=== PATIENT | male | born 1975 | race African-American/Black ===

== ENCOUNTER 2019-04-18 18:39 | Outpatient (REF) | payer OTHER, SELFPAY ==
[2019-04-18 19:00] LABS: ALT 36 U/L (16-63); AST 22 U/L (15-37); Albumin 3.9 g/dL (3.4-5.0); Alkaline Phosphatase 71 U/L (46-116); BUN 8 mg/dL (7-18); Bilirubin, Total 0.4 mg/dL (0.2-1.0); CREATININE 0.86 mg/dL (0.70-1.30); Calcium 9.2 mg/dL (8.5-10.1); Calculated LDL 73 mg/dL; Chloride 104 mmol/L (98-107); Cholesterol 124 mg/dL (50-200); Glucose 118 mg/dL (70-100); HDL Cholesterol 43 mg/dL (40-60); Potassium 4.8 mmol/L (3.5-5.1); Sodium 141 mmol/L (136-145); Total Protein 7.9 g/dL (6.4-8.2); Triglyceride 43 mg/dL (30-150)
== END 2019-04-18 18:59 ==
LOC: LBN 18:39
PROVIDERS: PCP Family Medicine; Visit Provider Family Medicine
DX: R73.02 Impaired glucose tolerance (oral) (principal)
CPT/HCPCS: 80053; 80061

== ENCOUNTER 2019-11-28 13:54 | Outpatient (CLI) | payer OTHER, SELFPAY ==
--- NOTE | 2019-11-28 10:30 | DI.US_ITS ---
EXAM: US ABDOMEN CLINICAL HISTORY: R sided abdominal pain, fever, nausea,R10.9 TECHNIQUE: Ultrasound performed using standard protocol. COMPARISON: No exams were available for comparison FINDINGS: Visualized liver parenchyma is somewhat heterogeneous and echogenic. Findings may represent hepatic steatosis. No focal lesion identified. Gallbladder is contracted with no evidence of cholelithiasis. No biliary dilatation. Pancreas is un remarkable as visualized but the pancreatic tail is not seen. Spleen appears normal within incidentals splenule. The kidneys are unremarkable in appearance with no evidence of hydronephrosis or nephrolithiasis. The abdominal aorta and IVC are of normal diameter. Scanning of the right lower quadrant does not show the appendix. IMPRESSION: Negative abdominal ultrasound except for presumed hepatic steatosis. DATA REPOSITORY:
== END 2019-11-28 14:14 ==
PROVIDERS: PCP Family Medicine; Visit Provider Family Medicine
DX: R10.11 Right upper quadrant pain (principal); R11.0 Nausea; R50.9 Fever, unspecified; K76.0 Fatty (change of) liver, not elsewhere classified
CPT/HCPCS: 76700

== ENCOUNTER 2019-12-05 02:49 | Outpatient (CLI) | payer OTHER, SELFPAY ==
[2019-12-05 12:24] LABS: Abs Immature Grans 0.13 k/cumm (0.0-0.09); Absolute Basophil Count 0.02 k/cumm (0.0-0.2); Absolute Eosinophil Count 0.11 k/cumm (0.0-0.7); Absolute Lymphocyte Count 2.57 k/cumm (1.2-3.4); Absolute Monocyte Count 0.59 k/cumm (0.11-0.7); Absolute Neutrophil Count 2.86 k/cumm (1.2-6.7); Basophils % 0.3; Eosinophils % 1.8; HCT 44.1 % (40.0-50.0); HGB 14.4 g/dL (13.5-17.5); Immature Grans % 2.1 %; Lymphocytes % 40.9; Mean Corp. HGB Concentration 32.7 g/dL (32.0-36.0); Mean Corpuscular Hemoglobin 27.8 pg (27.0-33.0); Mean Corpuscular Volume 85.1 fL (80-95); Mean Platelet Volume 9.7 fL (8.0-11.0); Monocytes % 9.4; Neutrophils % 45.5; Platelet Count 412 x1000/uL (130-400); RBC 5.18 m/cumm (4.50-6.00); RBC Distribution Width 13.8 % (11.8-14.1); White Blood Cell Count 6.28 k/cumm (4.4-10.8)
[2019-12-05 13:05] LABS: Lipase 132 U/L (73-393)
[2019-12-05 13:13] LABS: ALT 49 U/L (16-63); AST 20 U/L (15-37); Albumin 3.5 g/dL (3.4-5.0); Alkaline Phosphatase 75 U/L (46-116); Anion Gap 7.8 mmol/L (3-11); BUN 17 mg/dL (7-18); Bilirubin, Total 0.2 mg/dL (0.2-1.0); CO2 28.2 mmol/L (21.0-32.0); Calcium 9.2 mg/dL (8.5-10.1); Chloride 101 mmol/L (98-107); Glucose 141 mg/dL (74-106); Potassium 4.4 mmol/L (3.5-5.1); Sodium 137 mmol/L (136-145); Total Protein 7.3 g/dL (6.4-8.2)
[2019-12-05 13:25] LABS: Bilirubin Negative (Negative); Blood Negative (Negative); Clarity Clear (Clear); Glucose Negative (Negative); Ketones Negative (Negative); Leukocyte Esterase Negative (Negative); Nitrite Negative (Negative); Specific Gravity >= 1.030 (1.005-1.025); Urobilinogen 0.2 EU/dL (Up TO 0.2); pH 5.5 (5-8)
== END 2019-12-05 03:09 ==
PROVIDERS: PCP Family Medicine; Visit Provider Family Medicine
DX: R10.9 Unspecified abdominal pain (principal)
CPT/HCPCS: 36415; 80053; 83690; 81003; 85025

== ENCOUNTER 2020-03-04 10:04 | Outpatient (CLI) | payer OTHER, SELFPAY ==
--- NOTE | 2020-03-04 10:22 | DI.RAD_ITS ---
EXAM: XR KNEE RT 3V AP,LAT,DANIS CLINICAL HISTORY: eval R knee pain, medial TECHNIQUE: COMPARISON: No exams were available for comparison FINDINGS: Three views were obtained. There may be mild narrowing of the medial tibiofemoral cartilaginous join t space. Mild marginal osteophyte formation noted at the medial tibiofemoral joint and patellofemora l joint. There may be a small knee joint effusion. No other significant abnormality seen. IMPRESSION: Mild degenerative changes as described above.
== END 2020-03-04 10:24 ==
PROVIDERS: PCP Family Medicine; Referring Provider Family Medicine; Visit Provider Student in an Organized Health Care Education/Training Program
DX: M17.11 Unilateral primary osteoarthritis, right knee (principal); M25.761 Osteophyte, right knee
CPT/HCPCS: 73562

== ENCOUNTER 2020-03-11 15:26 | Outpatient (REF) | payer OTHER, SELFPAY | END 2020-03-11 15:46 | LOC: LBN 15:26 | PROVIDERS: PCP Family Medicine; Visit Provider Family Medicine | DX: B89 Unspecified parasitic disease | CPT/HCPCS: 87177 ==

== ENCOUNTER 2020-04-16 23:35 | Outpatient (REF) | payer OTHER, SELFPAY ==
[2020-04-16 22:20] LABS: ALT 43 U/L (16-63); AST 26 U/L (15-37); Albumin 3.9 g/dL (3.4-5.0); Alkaline Phosphatase 76 U/L (46-116); Anion Gap 7.6 mmol/L (3-11); BUN 13 mg/dL (7-18); Bilirubin, Total 0.3 mg/dL (0.2-1.0); CO2 30.4 mmol/L (21.0-32.0); CREATININE 0.84 mg/dL (0.70-1.30); Calcium 9.6 mg/dL (8.5-10.1); Calculated LDL 94 mg/dL (<100); Chloride 103 mmol/L (98-107); Cholesterol 156 mg/dL (<200); Glucose 118 mg/dL (74-106); HDL Cholesterol 49 mg/dL (40-60); Potassium 5.1 mmol/L (3.5-5.1); Sodium 141 mmol/L (136-145); Total Protein 7.6 g/dL (6.4-8.2); Triglyceride 69 mg/dL (<150)
== END 2020-04-16 23:55 ==
LOC: LBN 23:35
PROVIDERS: PCP Family Medicine; Visit Provider Family Medicine
DX: E11.9 Type 2 diabetes mellitus without complications (principal); K76.0 Fatty (change of) liver, not elsewhere classified
CPT/HCPCS: 80053; 80061

== ENCOUNTER 2020-04-23 04:18 | Outpatient (CLI) | payer OTHER, SELFPAY ==
[2020-04-23] MEDS: Omnipaque 350 MG/ML 50 ML BTL PO (12:34)
[2020-04-23] MEDS: Breeza Beverage 473 ML BTL PO (14:40)
[2020-04-23] MEDS: Normal Saline - Diluent 50 ML VIAL IV (14:41)
[2020-04-23] MEDS: Omnipaque 350 MG/ML 100 ML BTL IJ (14:41)
--- NOTE | 2020-04-23 14:44 | DI.CT_ITS ---
EXAM: CT ABDOMEN PELVIS W CLINICAL HISTORY: 44 yo male with RUQ pain, liver vs rib frx,FATTY LIVER,K76.0 TECHNIQUE: Imaging Protocol: Axial computed tomography images with coronal and sagittal reformatted images were created and reviewed CONTRAST MATERIAL: Intravenous: Omnipaque 350 Contrast volume:100 mL Oral: Yes COMPARISON: No exams were available for comparison FINDINGS: ABDOMEN: Lung Bases: Normal where visualized. Liver: Fatty infiltration. No measurable mass. Portal, Superior Mesenteric, and Splenic Veins: Unremarkable. Gallbladder and Biliary Tract: No radiodense calculus or dilation. Pancreas: Normal density, no abnormal calcifications or inflammatory process. Spleen: Normal. Adrenals: No masses seen. Kidneys: Normal size, contour and axis. No radiodense stones or obstructive uropathy. No masses seen. Abdominal Aorta: Abdominal portion non-dilated. Bowel: No obstruction or bowel wall thickening. Appendix is unremarkable. Peritoneal Cavity: No ascites, collection or mesenteric inflammatory response. Lymph Nodes: Within normal limits. Bones: L5 spondylolysis but no spondylolisthesis. Mild degenerative changes. Soft Tissues: Unremarkable. PELVIS: Bladder: Symmetric distention, no gross wall thickening. Reproductive Organs: Unremarkable as visualized. Lymph Nodes: Within normal limits. Bones: Please see above. IMPRESSION: 1. No evidence of a fracture. No evidence of a rib fracture. 2. Fatty infiltration of the liver. No evidence of a hepatic mass. RADIATION DOSE DELIVERED: 1,399.28mGy.cm Total DLP DATA REPOSITORY: All CT scans at this facility are submitted to the National Radiology Data Registry (NRDR) Dose Index Registry (DIR) with the [employer] (ACR). RADIATION OPTIMIZATION: All CT scans at this facility use at least one of these dose optimization te chniques: automated exposure control; mA and/or kV adjustment per patient size (includes targeted exa ms where dose is matched to clinical indication); or iterative reconstruction.
== END 2020-04-23 04:38 ==
PROVIDERS: PCP Family Medicine; Visit Provider Family Medicine
DX: K76.0 Fatty (change of) liver, not elsewhere classified (principal); R10.11 Right upper quadrant pain
CPT/HCPCS: 74177; J3490; Q9967

== ENCOUNTER 2021-03-21 16:08 | Outpatient (REF) | payer MEDICAID, SELFPAY ==
[2021-03-21 21:37] LABS: Abs Immature Grans 0.02 10^3/uL (0.0-0.06); Absolute Basophil Count 0.03 10^3/uL (0.0-0.2); Absolute Eosinophil Count 0.06 10^3/uL (0.0-0.7); Absolute Lymphocyte Count 2.01 10^3/uL (1.2-3.4); Absolute Monocyte Count 0.45 10^3/uL (0.1-0.8); Absolute Neutrophil Count 1.52 10^3/uL (1.2-6.7); Basophils % 0.7; Eosinophils % 1.5; HCT 45.3 % (40.0-50.0); HGB 14.4 g/dL (13.5-17.5); Immature Grans % 0.5; Lymphocytes % 49.1; MCH 27.2 pg (27.0-33.0); MCHC 31.8 % (32.0-36.0); MCV 85.5 fL (80-95); MPV 12.4 fL (8.0-11.0); Neutrophils % 37.2; Nucleated RBC 0 %; Platelet Count 309 10^3/uL (130-400); RDW 13.9 % (11.8-14.1); RDW-SD 43.5 fL; WBC 4.09 10^3/uL (4.4-10.8)
[2021-03-21 21:52] LABS: ALT 34 U/L (16-63); AST 14 U/L (15-37); Albumin 3.9 g/dL (3.4-5.0); Alkaline Phosphatase 71 U/L (46-116); Anion Gap 8.2 mmol/L (3-11); BUN 13 mg/dL (7-18); Bilirubin, Total 0.3 mg/dL (0.2-1.0); CO2 26.8 mmol/L (21.0-32.0); Calcium 9.2 mg/dL (8.5-10.1); Chloride 103 mmol/L (98-107); Glucose 187 mg/dL (74-106); Sodium 138 mmol/L (136-145); Total Protein 7.3 g/dL (6.4-8.2)
[2021-03-23 16:20] LABS: COVID-19 RT-PCR UVMMC Result Negative (Negative)
== END 2021-03-21 16:09 | disposition home or self-care (01) ==
LOC: LBN 16:08
PROVIDERS: PCP Family Medicine; Visit Provider Physician Assistant Medical
DX: E11.9 Type 2 diabetes mellitus without complications (principal); Z20.822 Contact with and (suspected) exposure to COVID-19
CPT/HCPCS: 80053; U0003; 85025

== ENCOUNTER 2021-03-24 01:38 | Outpatient (CLI) | payer MEDICAID, SELFPAY ==
--- NOTE | 2021-03-24 | DI.US_ITS ---
Exam(s) US ABDOMEN RENAL EXAM: US ABDOMEN RENAL CLINICAL HISTORY: RT FLANK PAIN, R10.9, CONCERN FOR KIDNEY/GALLBLADDER STONES TECHNIQUE: Ultrasound of complete upper abdomen performed using standard protocol. COMPARISON: US US ABDOMEN from 11/28/2019 FINDINGS: There is no ascites evident. LIVER: There are no hepatic lesions evident nor obvious dilatation of intrahepatic ducts. Liver does appear somewhat hyperechoic indicating an element of steatosis. GALLBLADDER/BILIARY: There are no gallstones. No gallbladder wall edema nor pericholecystic fluid. The common hepatic duct isnot dilated, measuring 2.3mm at the level of dianne hepatis. PANCREAS: There is no evidence of pancreatic mass nor dilatation of the pancreatic duct. SPLEEN: The spleen is not enlarged and there are no intrasplenic lesions evident. KIDNEYS:Kidneys exhibit normal size with no evidence of solid mass, calculus, nor hydronephrosis. No cortical cysts evident. ABDOMINAL AORTA: There is no evidence of abdominal aortic aneurysm. IVC: Normal diameter where visualized. URINARY BLADDER: Contains only 61 cc volume. However, both ureterovesical jets were identified. No obvious mass in the urinary bladder, realizing limitations due to the small amount of volume therein. IMPRESSION: 1. No evidence of cholelithiasis nor dilatation of the biliary tree. 2. Hepatic steatosis. Correlation appropriate hepatic blood work recommended. 3. Bladder not adequately prepped, as described above. DATA REPOSITORY:
== END 2021-03-24 01:58 ==
PROVIDERS: PCP Family Medicine; Visit Provider Physician Assistant Medical
DX: R10.9 Unspecified abdominal pain (principal); K76.0 Fatty (change of) liver, not elsewhere classified
CPT/HCPCS: 76770; 76700

== ENCOUNTER 2021-09-13 00:28 | Outpatient (CLI) | payer MEDICAID, SELFPAY ==
--- NOTE | 2021-09-13 | ETT_ITS ---
APPROVED REPORT Exam: Exercise Treadmill Patient Location: Out-Patient Room/Bed: Stress Nurse: Kaia Leach RN Ordering Provider:CAMERON LLOYD, Contact Number: [phone] BMI: 37.30 Baseline Rhythm: Sinus Rhythm Indications: Intermittent Chest Pain Medical History Medical History: DM, Asthma, ADONAY, Anxiety, Depression Cardiac Medications: Omeprazole, Montelukast, Metformin, Albuterol sulfate. Allergies: No known drug allergies Cardiac Risk Factors: DM, FHX of CAD, Asthma Previous Cardiac Procedures: None Pretest Chest Pain Characteristics: No chest pain Exercise History: Sedentary Physical Disabilities: None Lung Sounds: Clear to auscultation Heart Sounds: Regular Stress Test Details Test: Exercise stress testing was performed using a Shamar protocol. Rest Stress HR Resting HR Supine: 67 bpm Max Heart Rate (APMHR): 173 bpm Resting HR Standin bpm Target HR (85% APMHR): 147 bpm Max HR Achieved: 158 bpm % of APMHR: 91 Recovery HR: 97 bpm HR response to stress: Normal HR response to stress BP Resting BP Supine: 130/88 mmHg Resting BP Standin/80 mmHg Max BP: 160/78 mmHg Recovery BP: 130/76 mmHg BP response to stress: Normal blood pressure response to stress. ECG Resting ECG: Sinus Rhythm Ectopy: none Comment: diffuse mild ST segment elevations noted Stress ECG: Sinus Tachycardia ST Change: No significant ST segment changes noted Arrhythmia: rare PVC Recovery ECG: Sinus Rhythm Recovery ST Change: No significant ST segment changes noted Recovery Arrhythmia: None Clinical Reason for Termination: Dyspnea Stress Symptoms: General Fatigue, Dyspnea Exercise duration: 08 min15 sec Highest Stage Reached: Stage 3: 3.4 mph at 14% grade. Exercise capacity: 10.16 METs Rate Pressure Product: 28015 Stress ECG Conclusion 1. Resting electrocardiogram was within normal limits 2. Patient exercised on the Shamar protocol completed a workload of 10.16 METS, stopping due to fatigu e 3. Normal heart rate and blood pressure response to exercise. Patient achieved 91% of predicted hear t rate for age 4. There was no electrocardiographic evidence of myocardial ischemia 5. There were no significant dysrhythmias Stress Test Summary STAGE Time (mins) Speed (mph) Grade (%) HR BP SYMPTOMS METS Supine 67 130/88 Standing 62 132/80 1 3 1.7 10 102 140/80 SpO2 99% 4.6 2 6 2.5 12 121 142/80 Sp02 99% 7 1 min recovery 126 150/78 3 min recovery 94 160/78 6 min recovery 97 130/76
== END 2021-09-13 00:48 ==
PROVIDERS: PCP Nurse Practitioner Family; Visit Provider Nurse Practitioner Family
DX: R07.9 Chest pain, unspecified (principal); E11.9 Type 2 diabetes mellitus without complications; Z82.49 Family history of ischemic heart disease and other diseases of the circulatory system; J45.909 Unspecified asthma, uncomplicated
CPT/HCPCS: 93017

== ENCOUNTER 2021-09-13 00:41 | Outpatient (CLI) | payer MEDICAID, SELFPAY ==
--- NOTE | 2021-09-13 07:30 | DI.US_ITS ---
APPROVED REPORT EXAM: Comprehensive 2D, Doppler, and color-flow Echocardiogram Patient Location: Out-Patient Daily [employer] Printer: Merary Vaughan RDCS (AE) Indications: Intermittent chest pain Other Information Study Quality: Good Conclusion Normal left ventricular wall thickness and chamber size. Estimated ejection fraction is 60 to 65%. Wall motion is normal Normal right ventricular size and systolic function Both atria are normal in size There is no structural or hemodynamically significant valvular disease Wall motion Left Ventricle The left ventricle is normal size. The left ventricular systolic function is normal. The left ventric ular ejection fraction is within the normal range. There is normal left ventricular wall thickness. T here is normal LV segmental wall motion. There is no ventricular septal defect visualized. LVEF is 60 -65%. Right Ventricle The right ventricle is normal size. The right ventricular systolic function is normal. The RVSP is 19 .8 mmHg. Atria The left atrium size is normal. The right atrium size is normal. The interatrial septum is intact wit h no evidence for an atrial septal defect. Aortic Valve The aortic valve is normal in structure. Aortic valve is trileaflet. There is no aortic valvular sten osis. No aortic regurgitation is present. Mitral Valve The mitral valve is normal in structure. No evidence of mitral valve stenosis. Trace to mild mitral r egurgitation. Tricuspid Valve The tricuspid valve is normal in structure. There is no tricuspid valve stenosis. Trace tricuspid reg urgitation. Pulmonic Valve The pulmonary valve is normal in structure. There is no pulmonic valvular stenosis. Trace pulmonic re gurgitation. Great Vessels The aortic root is normal in size. The ascending aorta is normal in size. Aortic arch is normal in ca liber. IVC is normal in size and collapses >50% with inspiration. Pericardium There is no pericardial effusion. 2D Dimensions IVSD d PLAX 0.98 cm M: 0.6-1.2 LV Vol A2C d MOD 96.2 mL LVPW d PLAX 0.95 cm M: 0.6 - 1.2 LV Vol A4C d MOD 106.4 mL LVID d PLAX 4.90 cm M: 4.2 - 5.8 LA vol/ BSA A2C s A-L 16.5 mL/m2 LVDs 3.15 cm M: 2.5 - 4.0 LA vol/ BSA A4C s A-L 12.5 mL/m2 Ao Root d 2.52 cm M: 3.1 - 3.7 LA Vol/ BSA Biplane s A-L 14.4 mL/m2 RA Area A4C 11.81 cm2 LA Area A4C s MOD 13.27 cm2 RA Vol/ BSA A4C s A-L 10.9 mL/m2 LA Area A2C s MOD 15.34 cm2 Ao Asc Diam d 2.93 cm M: 2.6 - 3.4 LV EF A4C MOD 59.7 % LV EF Teichholz 64.2 % LV EF A2C MOD 65.6 % LVEF (Caraballo's) 64.13 % M: 52 - 72 LV EF Biplane MOD 64.1 % LV Volume 76.34 mL M: 62 - 150 SV 68.54 mL LV Volume Index 32.76 mL/m2 M: 34 - 74 SV Index 29.37 mL/m2 LV Vol Biplane MOD 106.9 mL FS 35.10 % M-Mode TAPSE 2.19 cm (M/F) >1.7 LV Diastology MV E' medial 0.094 (>0.07 m/s) E/A Ratio 1.8 LV E/e MED 10.65 (<14) MV E Vmax 1.00 (0.4-1.3 m/s) MV E' lateral 0.129 (>0.1 m/s) MV A Vmax 0.55 (0.4-1.3 m/s) LV E/e LAT 7.70 (<14) MV E/A Ratio 1.80 MV E/E' medial 10.65 MV E/E' lateral 7.75 Aortic Valve LVOT Area 2.83 cm2 AoV Area Vmax 2.39 cm2 LVOT Vmax 1.31 m/s AoV Area/ BSA (Vmax) 1.02 cm2/m2 LVOT Mean Singh. 0.77 m/s PAIGE Mean Singh. 2.25 cm2 LVOT Peak Grad 6.9 mmHg PAIGE Mean Singh. Index 0.96 cm2/m2 LVOT Mean Grad 2.9 mmHg LVOT VTI 0.270 m LVOT Diam s 1.85 cm AoV Vmax 1.56 m/s Velocity Ratio 0.83 AoV Mean Singh. 0.97 m/s AoV Peak Grad 9.7 mmHg LVOT SV 76.48 mL AoV Mean Grad 4.4 mmHg AoV VTI 0.275 m AoV Area VTI 2.78 cm2 AoV Area/ BSA (VTI) 1.19 cm/m2 Mitral Valve MV DT 197 (160-240 msec) MV PHT 57 msec MV Area PHT 3.85 cm2 MV VTI 0.342 m MV Area VTI 2.24 (4.0-6.0 cm2) Pulmonary Valve PV Vmax 1.27 (0.5-1.5 m/s) RVOT Peak Gr. 2.21 mmHg PV Peak Grad 6.4 mmHg RVOT Mean Gr. 1.20 mmHg PV Mean Grad 3.2 mmHg RVOT VTI 0.190 m PV VTI 0.296 m RVOT Vmax 0.74 m/s Tricuspid Valve TR Peak Grad 16.7 mmHg TR Vmax 2.05 m/s RA Pressure 3.00 mmHg RVSP (TR) 19.8 mmHg
== END 2021-09-13 01:01 ==
PROVIDERS: PCP Nurse Practitioner Family; Visit Provider Nurse Practitioner Family
DX: R07.89 Other chest pain (principal)
CPT/HCPCS: 93306

== ENCOUNTER 2022-03-14 13:21 | Outpatient (REF) | payer MEDICAID, SELFPAY ==
[2022-03-14 16:23] LABS: HCT 45.3 % (40.0-50.0); HGB 14.5 g/dL (13.5-17.5); MCH 27.4 pg (27.0-33.0); MCV 86 fL (80-95); MPV 11.4 fL (8.0-11.0); Platelet Count 331 10^3/uL (130-400); RDW 14.4 % (11.8-14.1); RDW-SD 44.7 fL; WBC 4.65 10^3/uL (4.4-10.8)
[2022-03-14 16:43] LABS: ALT 27 U/L (16-63); AST 19 U/L (15-37); Albumin 4.1 g/dL (3.4-5.0); Alkaline Phosphatase 60 U/L (46-116); Anion Gap 9.9 mmol/L (3-11); BUN 17 mg/dL (7-18); Bilirubin, Total 0.4 mg/dL (0.2-1.0); CO2 28.1 mmol/L (21.0-32.0); CREATININE 0.9 mg/dL (0.70-1.30); Calcium 9.5 mg/dL (8.5-10.1); Calculated LDL 90 mg/dL (<100); Chloride 102 mmol/L (98-107); Cholesterol 151 mg/dL (<200); Glucose 97 mg/dL (74-106); HDL Cholesterol 47 mg/dL (40-60); Potassium 4.5 mmol/L (3.5-5.1); Sodium 140 mmol/L (136-145); Total Protein 7.8 g/dL (6.4-8.2); Triglyceride 70 mg/dL (<150)
[2022-03-15 11:27] LABS: HIV-1/2 Ag & Ab Screen Negative (Negative)
[2022-03-15 11:31] LABS: Hepatitis C Ab w Rflx HCV PCR Negative (Negative)
== END 2022-03-14 13:22 | disposition home or self-care (01) ==
LOC: LBN 13:21
PROVIDERS: PCP Nurse Practitioner Family; Visit Provider Nurse Practitioner Family
DX: E11.9 Type 2 diabetes mellitus without complications (principal); K76.0 Fatty (change of) liver, not elsewhere classified; Z13.220 Encounter for screening for lipoid disorders; Z11.59 Encounter for screening for other viral diseases; Z11.4 Encounter for screening for human immunodeficiency virus [HIV]
CPT/HCPCS: 80053; 80061; 85027; 86803; 87389

== ENCOUNTER 2022-05-09 16:16 | Outpatient (REF) | payer MEDICAID, SELFPAY ==
--- NOTE | 2022-05-09 15:50 | SKI_PTH ---
PATIENT: Tony Estes LOC: [facility] U#:[id number] AGE/SX: 46/M ROOM: RE05/09/[address]: Eliecer Padgett DNP : 1975 BED: DIS: 05/09/2022 SPEC #: [id number] RECD: 05/10/22 12:14 STATUS: ZOE REQ #: [id number] SUAD: 05/09/22 15:[address]: Eliecer Sepulveda DEPT: Surgical Specimen RECD BY: Mari Dutta ENTERED: 05/10/22 12:15 SP TYPE: SKI OT DR: Yara Noriega Tissues: 1 - SKIN BIOPSY(SHAVE/PUNCH) 2 - SKIN BIOPSY(SHAVE/PUNCH) Procedures: SKIN LEVEL 4 Comments: [id number]
== END 2022-05-09 16:17 | disposition home or self-care (01) ==
LOC: LBN 16:16
PROVIDERS: PCP Nurse Practitioner Family; Visit Provider Nurse Practitioner Family
DX: L81.8 Other specified disorders of pigmentation (principal); L98.6 Other infiltrative disorders of the skin and subcutaneous tissue
CPT/HCPCS: 88305

== ENCOUNTER → 2022-06-20 15:11 | Outpatient (CLI) | payer MEDICAID, SELFPAY ==
--- NOTE | 2022-06-20 | DI.RAD_ITS ---
Exam(s) XR CHEST 2V PA LATERAL EXAM: XR CHEST 2V PA LATERAL CLINICAL HISTORY: DYSPNEA R06.00 TECHNIQUE: 2D digital imaging was performed of the chest. Two images were obtained. PA and lateral views were obtained. COMPARISON: No exams were available for comparison FINDINGS: MEDIASTINUM: Normal. HEART: Normal. PULMONARY VASCULATURE: Normal. LUNGS: Clear. PLEURAL SPACE: No pleural effusion or pneumothorax. BONE:Within normal limits for the patient's age. OTHER FINDINGS:Normal. IMPRESSION: No acute pulmonary findings. DATA REPOSITORY: RADIATION DOSE DELIVERED:
--- NOTE | 2022-06-20 17:25 | DI.VRAD_ITS ---
PROCEDURE INFORMATION: Exam: XR Chest Exam date and time: 06/20/2022 5:06 PM Age: 46 years old Clinical indication: Dyspnea TECHNIQUE: Imaging protocol: Radiologic exam of the chest. Views: 2 views. COMPARISON: CT ABDOMEN PELVIS W 04/23/2020 2:43 PM FINDINGS: Lungs: Low lung volumes. No consolidation. Pleural spaces: Unremarkable. No pleural effusion. No pneumothorax. Heart/Mediastinum: Unremarkable. No cardiomegaly. Bones/joints: Unremarkable. IMPRESSION: No acute findings. Dictated and Authenticated by: Eliecer Ballard MD. Ordering:TEA Gonzáles MD
--- OUTSIDE RECORDS SUMMARY | 2022-06-27 15:13 | XMS_ITS | Encounter Summary ---
:1975 Author Organization [facility] Address [address] [place] [address] Care Team Providers Name Role Phone Yara Noriega Primary Care Provider Encounter Details Date Type Department Care Team Description 06/21/2022 Lab Requisition [facility] Outr Resulting Lab, Pathology & Laboratory Provider [facility] [address] [place] [address] Social History Tobacco Use Types Packs/Day Years Used Date Smoking Tobacco: Never Assessed Sex Assigned at Date Recorded Not on file documented as of this encounter Plan of Treatment Not on filedocumented as of this encounter Procedures Procedure Name Priority Date/Time Associated Diagnosis Comme nts OVA/PARASITE EXAM Routine 06/20/2022 16:00 Result s for this EST procedure are i n the results section. documented in this encounter Results OVA/PARASITE EXAM (06/20/2022 16:00 EST) [facility] Method Time Signature Parasite No ova and 06/23/2022 [facility] parasites 10:30 EST CENTER seen. LABORATORY SERVICES Specimen Anatomical Collection Method Collection Time Receive d Time (Source) Location / / Volume Laterality Feces SPECIMEN FROM 06/20/2022 16:00 06/21/2022 [facility] / Unknown EST 18:00 EST Narrative [facility] - 06/23/2022 10:30 EST (If Cryptosporidium, Cyclospora, or Micr osporidium are suspected, specific tests must be requested.) Single negative specimen does not rule out the possibility of a parasitic infection. Provider Outr Resulting Lab MICROBIOLOGY - GENERAL ORD ERABLES Performing Organization Address City/State/ZIP Code Phon e Number [facility] [address] [place] [address] SERVICES documented in this encounter Visit Diagnoses Not on filedocumented in this encounter Care Teams Double End Tenon Operator Relationship Specialty Start Date End Date Yara Noriega FNP PCP - General 03/30/22 [address] [place] [address] documented as of this encounter
--- OUTSIDE RECORDS SUMMARY | 2022-06-27 15:13 | XMS_ITS | Encounter Summary ---
:1975 Author Organization [facility] Address [address] [place] [address] Care Team Providers Name Role Phone Yara Noriega Primary Care Provider Encounter Details Date Type Department Care Team Description 03/12/2020 Lab Requisition [facility] Outr Resulting Lab, Pathology & Laboratory Provider [facility] [address] [place] [address] Social History Tobacco Use Types Packs/Day Years Used Date Smoking Tobacco: Never Assessed Sex Assigned at Date Recorded Not on file documented as of this encounter Plan of Treatment Not on filedocumented as of this encounter Procedures Procedure Name Priority Date/Time Associated Diagnosis Comme nts OVA/PARASITE EXAM Routine 03/11/2020 10:30 Result s for this EDT procedure are i n the results section. documented in this encounter Results (ABNORMAL) OVA/PARASITE EXAM (03/11/2020 10:30 EDT) [facility] Method Time Signature Parasite ENTAMOEBA 03/15/2020 [facility] 14:26 EDT [facility] LABORATORY SERVICES Comment: This organism is considered No n-pathogenic. Detection may indicate exposure to a contaminated water source, but its role as an etiologic agent causinggastrointestinal disease has NOT been established. Specimen Anatomical Collection Method Collection Time Receive d Time (Source) Location / / Volume Laterality Feces SPECIMEN FROM Stool Collect / 03/11/2020 10:30 020 [facility] / Unknown Unknown EDT 17:13 EDT Provider Outr Resulting Lab MICROBIOLOGY - GENERAL ORD ERABLES Performing Organization Address City/State/ZIP Code Phon e Number [facility] [address] [place] [address] SERVICES documented in this encounter Visit Diagnoses Not on filedocumented in this encounter Care Teams Business Solutions Analyst Relationship Specialty Start Date End Date Yara Noriega FNP PCP - General 03/30/22 [place] [address] documented as of this encounter
--- OUTSIDE RECORDS SUMMARY | 2022-06-27 15:13 | XMS_ITS | Encounter Summary ---
:1975 Author Organization [facility] Address [address] [place] [address] Care Team Providers Name Role Phone Yara Noriega Primary Care Provider Encounter Details Date Type Department Care Team Description 03/22/2021 Lab Requisition [facility] Center Outr Resulting Lab, Pathology & Laboratory Provider [facility] [address] [place] [address] Social History Tobacco Use Types Packs/Day Years Used Date Smoking Tobacco: Never Assessed Sex Assigned at Date Recorded Not on file documented as of this encounter Plan of Treatment Not on filedocumented as of this encounter Procedures Procedure Name Priority Date/Time Associated Diagnosis Comme nts COVID-19 TEST [facility] Today 03/21/2021 14:00 LAB PCR EDT COVID-19 TESTING Routine 03/21/2021 14:00 Results for this EDT procedure are i n the results section. documented in this encounter Results COVID-19 TEST [facility] LAB PCR (03/21/2021 14:00 EDT) Specimen Anatomical Location Collection Method Collection Time Received Time (Source) / Laterality / Volume Swab ENTIRE NASOPHARYNX 03/21/2021 14:00 03/22 / Unknown EDT 15:44 EDT Provider Outr Resulting Lab MICROBIOLOGY - GENERAL ORD ERABLES Performing Organization Address City/State/ZIP Code Phon e Number [facility] [address] [place] [address] SERVICES COVID-19 TESTING (03/21/2021 14:00 EDT) Analysis Performed At [facility] Time Signature COVID-19 Negative Negative 03/23/[address] [facility] MEDICAL rt-PCR Result 16:14 EDT CENTER LABORATORY SERVICES Comment: This test has not been FDA cleared or ap proved. This test has been authorized by FDA under an EUA for use by authorized laboratories. This test has been authorized only for detection of nucleic acid fro m 2019-nCoV, not for any other viruses o r pathogens. This test is only authorized for the duration of the declaration that circumstances exist justifying the authorization of emergency use of in vitro d iagnostic tests for detection and/or fabián gnosis of 2019-nCoV under section 564(b)(1) of Act, 21 U.S.C ?? 360bbb-3(b) (1), unless the authorization is terminated or revoked sooner. Negative results do not preclude 2019-nC oV infection and should not be used as the sole basis for treatment or other patient management decisions. Negative results must be combined with clinical observa tions, patient history, and epidemiologi darcy information. Testing was performed using the [place] [employer] RS-CoV-2 assay ([employer] on the [place] 6800 System Performing Lab [place] [address] [facility] 03/23/2021 16:14 E DT [facility] Lab LABORATORY SERVICES Specimen Anatomical Collection Method Collection Time Receive d Time (Source) Location / / Volume Laterality Swab 03/21/2021 14:00 03/22/2021 EDT 15:44 EDT Provider Outr Resulting Lab MICROBIOLOGY - GENERAL ORD ERABLES Performing Organization Address City/State/ZIP Code Phon e Number [facility] [address] [place] [address] SERVICES documented in this encounter Visit Diagnoses Not on filedocumented in this encounter Care Teams Estate Planning Counselor Relationship Specialty Start Date End Date Yara Noriega FNP PCP - General 03/30/22 [address] [place], [place] [id number] documented as of this encounter
--- OUTSIDE RECORDS SUMMARY | 2022-06-27 15:13 | XMS_ITS | Encounter Summary ---
:1975 Author Organization [facility] Address [address] [place] [address] Care Team Providers Name Role Phone Yara NoriegaP Primary Care Provider Encounter Details Date Type Department Care Team Description 06/21/2022 Lab Requisition [facility] Outr Resulting Lab, Pathology & Laboratory Provider [facility] [address] [place] [address] Social History Tobacco Use Types Packs/Day Years Used Date Smoking Tobacco: Never Assessed Sex Assigned at Date Recorded Not on file documented as of this encounter Plan of Treatment Not on filedocumented as of this encounter Procedures Procedure Name Priority Date/Time Associated Comments Diagnosis HOLD SST Today 06/20/2022 15:11 Results for this EST procedure are i n the results section. HOLD SST Today 06/20/2022 15:11 Results for this EST procedure are i n the results section. CCP ANTIBODIES Today 06/20/2022 15:11 Results f or this EST procedure are i n the results section. LYME AB Today 06/20/2022 15:11 Results for this EST procedure are i n the results section. ANTI NUCLEAR AB Today 06/20/2022 15:11 Results for this (RYAN), IFA EST procedure are i n the results section. documented in this encounter Results HOLD SST (06/20/2022 15:11 EST) P athologist Signature Hold Hold 06/21/2022 [facility] 18:01 EST CENTER LABORATORY SERVICES Specimen Anatomical Collection Method Collection Time Receive d Time (Source) Location / / Volume Laterality Blood VENOUS BLOOD / 06/20/2022 15:11 Unknown EST 16:55 EST Provider Outr Resulting Lab LAB INFO SERVICE AND SUPPO RT & PHONE RESULT Performing Organization Address City/State/[facility] Code Phon e Number [facility] LABORATORY [address] [place] [address] SERVICES HOLD SST (06/20/2022 15:11 EST) athologist Signature Hold Hold 06/21/2022 [facility] MEDICAL 18:01 [facility] LABORATORY SERVICES Specimen Anatomical Collection Method Collection Time Receive d Time (Source) Location / / Volume Laterality Blood VENOUS BLOOD / 06/20/2022 15:11 2 Unknown EST 16:55 EST Provider Outr Resulting Lab LAB INFO SERVICE AND SUPPO RT & PHONE RESULT Performing Organization Address City/[facility]/ZIP Code Phon e Number [facility] LABORATORY [address] [place] [address] SERVICES LYME AB (06/20/2022 15:11 EST) athologist Signature Lyme Ab Negative Negative 06/23/2022 [facility] 10:52 [facility] LABORATORY SERVICES Specimen Anatomical Collection Method Collection Time Receive d Time (Source) Location / / Volume Laterality Blood VENOUS BLOOD / 06/20/2022 15:11 2 Unknown EST 16:49 EST Provider Outr Resulting Lab IMMUNOLOGY AND SEROLOGY OR DERABLES Performing Organization Address City/[facility]/ZIP Code Phon e Number [facility] LABORATORY [address] [place] [address] SERVICES ANTI NUCLEAR AB (RYAN), IFA (06/20/2022 15:11 EST) [facility] Method Time Signature RYAN Interpretation Negative Negative 06/23/2022 [facility]59 EST [place] [facility] SERVICES Comment: No titer performed, RYAN Screen is negative. Specimen Anatomical Collection Method Collection Time Receive d Time (Source) Location / / Volume Laterality Blood VENOUS BLOOD / 06/20/2022 15:11 2 Unknown EST 16:49 EST Narrative [facility] LABORATORY SERVICES - 06/23/2022 15:59 EST Results were obtained with the INOVA NOV A Lite HEp-2 RYAN Kit by indirect immunofluorescence. Provider Outr Resulting Lab IMMUNOLOGY AND SEROLOGY OR DERABLES Performing Organization Address City/[facility]/ZIP Code Phon e Number [facility] LABORATORY [address] [place] [address] SERVICES CCP ANTIBODIES (06/20/2022 15:11 EST) P athologist Signature CCP Antibodies <2.5 <5.0 U/mL 06/22/2022 [facility] 9:32 EST CENTER LABORATORY SERVICES Specimen Anatomical Collection Method Collection Time Receive d Time (Source) Location / / Volume Laterality Blood VENOUS BLOOD / 06/20/2022 15:11 2 Unknown EST 16:49 EST Provider Outr Resulting Lab IMMUNOLOGY AND SEROLOGY OR DERABLES Performing Organization Address City/State/ZIP Code Phon e Number [facility] LABORATORY [address] [place] [address] SERVICES documented in this encounter Visit Diagnoses Not on filedocumented in this encounter Care Teams Back Wedger Relationship Specialty Start Date End Date Yara Noriega FNP PCP - General 03/30/[address] [place] [address] documented as of this encounter
--- OUTSIDE RECORDS SUMMARY | 2022-06-27 15:13 | XMS_ITS | Clinical Summary ---
:1975 Author Organization [facility] Address [address] [place] [address] Care Team Providers Name Role Phone Yara Noriega [facility] Primary Care Provider Encounters Date Type Specialty Care Team Description 06/21/2022 Lab Requisition Clinical Laboratory Outr Resulting Lab, Provider 06/21/2022 Lab Requisition Clinical Laboratory Outr Resulting Lab, Provider 05/10/2022 Lab Requisition Clinical Laboratory Eliecer Mccain, En counter for other DNP general examina tion from Last 3 Months Social History Tobacco Use Types Packs/Day Years Used Date Smoking Tobacco: Never Assessed Sex Assigned at Date Recorded Not on file Plan of Treatment Health Maintenance Due Date Last Done Comments COVID-19 Vaccine (#1) 03/08/1975 Hepatitis C Screen Completed 03/14/2022 Procedures Procedure Name Priority Date/Time Associated Diagnosis [...] procedure are i n the results section. SURGICAL PATHOLOGY Today 05/09/2022 15:50 Encounter for othe r Results for this EDT general examination procedur e are in the results section. from Last 3 Months Results OVA/PARASITE EXAM (06/20/2022 16:00 EST) Patholo gist Method Time Signature Parasite No ova and 06/23/2022 [facility] parasites 10:30 EST CENTER seen. LABORATORY SERVICES Specimen Anatomical Collection Method Collection Time Receive d Time (Source) Location / / Volume Laterality Feces SPECIMEN FROM 06/20/2022 16:00 06/21/2022 [facility] / Unknown EST 18:00 EST Narrative [facility] LABORATORY SERVICES - 06/23/2022 10:30 EST (If Cryptosporidium, Cyclospora, or Micr osporidium are suspected, specific tests must be requested.) Single negative specimen does not rule out the possibility of a parasitic infection. Provider Outr Resulting Lab MICROBIOLOGY - GENERAL ORD ERABLES Performing Organization Address City/[facility]/ZIP Code Phon e Number [facility] LABORATORY [address] [place] [address] SERVICES HOLD SST (06/20/2022 15:11 EST)Only the most recent of2 resultswithin the time period is included. athologist Signature Hold Hold 06/21/2022 [facility] 18:01 [facility] LABORATORY SERVICES Specimen Anatomical Collection Method Collection Time Receive d Time (Source) Location / / Volume Laterality Blood VENOUS BLOOD / 06/20/2022 15:11 2 Unknown EST 16:55 EST Provider Outr Resulting Lab LAB INFO SERVICE AND SUPPO RT & PHONE RESULT Performing Organization Address City/[facility]/ZIP Code Phon e Number [facility] LABORATORY [address] [place] [phone] SERVICES CCP ANTIBODIES (06/20/2022 15:11 EST) athologist [facility] CCP Antibodies <2.5 <5.0 U/mL 06/22/2022 [facility] 9:32 EST [place] LABORATORY SERVICES Specimen Anatomical Collection Method Collection Time Receive d Time (Source) Location / / Volume Laterality Blood VENOUS BLOOD / 06/20/2022 15:11 2 Unknown EST 16:49 EST Provider Outr Resulting Lab IMMUNOLOGY AND SEROLOGY OR DERABLES Performing Organization Address City/[facility]/ZIP Code Phon e Number [facility] LABORATORY [address] [place] [address] SERVICES LYME AB (06/20/2022 15:11 EST) athologist [facility] Lyme Ab Negative Negative 06/23/2022 [facility] MEDICAL 10:52 [facility] LABORATORY SERVICES Specimen Anatomical Collection Method Collection Time Receive d Time (Source) Location / / Volume Laterality Blood VENOUS BLOOD / 06/20/2022 15:11 2 Unknown EST 16:49 EST Provider Outr Resulting Lab IMMUNOLOGY AND SEROLOGY OR DERABLES Performing Organization Address City/[facility]/ZIP Code Phon e Number [facility] LABORATORY [address] [place] [address] SERVICES ANTI NUCLEAR AB (RYAN), IFA (06/20/2022 15:11 EST) [facility] Method Time Signature RYAN Interpretation Negative Negative 06/23/2022 [facility]ICA L 15:59 [facility] LABORATORY SERVICES Comment: No titer performed, RYAN Screen is negative. Specimen Anatomical Collection Method Collection Time Receive d Time (Source) Location / / Volume Laterality Blood VENOUS BLOOD / 06/20/2022 15:11 2 Unknown EST 16:49 EST Narrative [facility] LABORATORY SERVICES - 06/23/2022 15:59 EST Results were obtained with the INOVA NOV A Lite HEp-2 RYAN Kit by indirect immunofluorescence. Provider Outr Resulting Lab IMMUNOLOGY AND SEROLOGY OR DERABLES Performing Organization Address City/[facility]/ZIP Code Phon e Number [facility] LABORATORY [address] [place] [address] SERVICES SURGICAL PATHOLOGY (05/09/2022 15:50 EDT) Component Value Ref Test Analysis Performed At [facility] Method Time Signature Note to The following 05/12/2022 [facility] Patient pathology results 8:09 [facility] have been LABORATORY interpreted by your SERVICES pathologist and may be available to you before your health provider has had the opportunity to review them. Please allow time for your provider to receive these results and explore management options, if applicable. Final A. SKIN OF FOREARM, RIGHT POSTERIOR, PUNCH BIOPSY: 05/12/2022 [facility] MEDICAL Diagnosis - Sparse superficial perivas cular inflammation with melanophages. See comment. 8:09 [facility] LABORATORY B. SKIN OF FOREARM, LEFT POSTERIOR, PUNCH BIOPSY: SERVICES - Sparse superficial perivascular inflammation with melanoph ages. Diagnosis Multiple sections 05/12/2022 [facility] MEDICAL Comment of both biopsies 8:09 [facility] were reviewed. In LABORATORY both, the epidermis SERVICES has a relatively uniform amount of melanin pigment within the basal keratinocytes. Melanocytes are present and appear normal in number and morphology. There is a sparse perivascular lymphomononuclear infiltrate with reactive vascular changes and superficial melanophages. These features are more pronounced and associated with mild fibrosis in the biopsy from ? left forearm? . The features are relatively nonspecific but could represent postinflammatory hypopigmentation given the clinical history. These features should be correlated with the clinical appearance to exclude other forms of hypopigmentation. The presence of melanin pigment and melanocytes militates against vitiligo. Attestation By the signature 05/12/2022 [facility] MEDICA L Electronically below, the 8:09 [facility] signed by Sean, attending physician LABORATORY Reina Guerra MD certifies that they SERVICES on 05/12/2022 at have 1) personally [phone] conducted a gross and/or microscopic examination of the described specimen(s), and/or personally interpreted the results of laboratory testing of the described specimen(s), and 2) personally rendered or confirmed the above diagnosis. Microscopic Sections consist of 05/12/2022 [facility] Description a punch biopsy of 8: [facility] skin to the deep LABORATORY reticular dermis. SERVICES The stratum corneum is unremarkable. The epidermis varies to mild degree in thickness and rete architecture. Melanin pigment is evident along the basal zone and is distributed in a relatively uniform fashion. Melanocytes are present and appear normal. The dermis has a sparse superficial perivascular infiltrate of small lymphocytes. There are scattered melanophages throughout the papillary dermis. In the biopsy from ? left forearm? , there are areas of mild fibrosis. Deeper sections have similar features. Clinical Hypopigmentation 05/12/2022 [facility] MEDICAL History 8: [facility] LABORATORY SERVICES Gross A. 05/12/2022 [facility] MEDICAL Description Received in formalin pratik d with proper patient identification (initials E, A) and 1. R forearm is a holland-brown skin punch biopsy measuring 0.3 cm in diameter and excised to a depth of 0.2 cm. Submitted intact in A1. 8:09 [facility] LABORATORY B. SERVICES Received in formalin pratik d with proper patient identification (initials E, A) and 2. L forearm is a holland-brown skin punch biopsy measuring 0.3 cm in diameter and excised to a depth of 0.2 cm. Submitted intact in B1. ALESSANDRA MURPHY(ASCP) 05/10/2022 18:25 Performing [facility] LAB 05/12/2022 [facility] 8:09 EDT CENTER LABORATORY SERVICES Scanned 05/12/2022 [facility] MEDICAL Images 8:09 [facility] LABORATORY SERVICES Specimen Anatomical Collection Method Collection Time Receive d Time (Source) Location / / Volume Laterality Tissue TISSUE SPECIMEN 05/09/2022 15:50 05/10/20 22 FROM SKIN / EDT 17:12 EDT Unknown Tissue specimen TISSUE SPECIMEN 05/09/2022 15:50 05/10 (specimen) FROM SKIN / EDT 17:12 EDT Unknown Eliecer Mccain DNP PATHOLOGY ORDERABLES Performing Organization Address City/State/ZIP Code Phon e Number [facility] CENTER LABORATORY [address] [place] [address] SERVICES from Last 3 Months Insurance Payer Benefit Plan Subscriber ID Effective Phone Address Typ e / Group Dates MEDICAID ACO MEDICAID ACO [id number] 2022-Pres [phone] [address] Medicaid [place] [address] [facility] [id number] Tony Estes Personal/Family Self 1975 [phone] (Home) [address] [place] [address] Tony Estes Personal/Family Self 1975 [phone] (Home) [address] [place] [address] Care Teams Fruit Harvester Relationship Specialty Start Date End Date Yara Noriega FNP PCP - General 03/30/22 [address] [place] [address]
--- OUTSIDE RECORDS SUMMARY | 2022-06-27 15:13 | XMS_ITS | Encounter Summary ---
:1975 Author Organization [facility] Address [address] [place] [address] Care Team Providers Name Role Phone Yara Noriega [employer] Primary Care Provider Encounter Details Date Type Department Care Team Description 03/14/2022 Lab Requisition [facility] Outr Resulting Lab, Pathology & Laboratory Provider [facility] [address] [place] [address] Social History Tobacco Use Types Packs/Day Years Used Date Smoking Tobacco: Never Assessed Sex Assigned at Date Recorded Not on file documented as of this encounter Plan of Treatment Not on filedocumented as of this encounter Procedures Procedure Name Priority Date/Time Associated Comments Diagnosis HIV 1/2 ANTIGEN AND Routine 03/14/2022 13:05 Resu lts for this ANTIBODY, 4TH EDT procedure are in GENERATION the results section. documented in this encounter Results HIV 1/2 ANTIGEN AND ANTIBODY, 4TH GENERATION (03/14/2022 13:05 EDT) [facility] Method Time Signature HIV 1 and 2 Negative Negative 03/15/2022 [facility] MEDICAL Antibody/p24 11:23 EDT CENTER Antigen, 4th LABORATORY Generation SERVICES Comment: If acute HIV-1 infection is monty pected in a high risk patient, submit plasma specimen for HIV-1 RNA quantitation test . Specimen Anatomical Collection Method Collection Time Receive d Time (Source) Location / / Volume Laterality Blood VENOUS BLOOD / 03/14/2022 13:05 2 Unknown EDT 21:12 EDT Narrative [facility] LABORATORY SERVICES - 03/15/2022 11:23 EDT Fourth Generation assay performed on the Siemens Centaur XPT. Provider Outr Resulting Lab IMMUNOLOGY AND SEROLOGY OR DERABLES Performing Organization Address City/State/ZIP Code Phon e Number [facility] LABORATORY [address] [place] [address] SERVICES documented in this encounter Visit Diagnoses Not on filedocumented in this encounter Care Teams Scrap Cutter Relationship Specialty Start Date End Date Yara Noriega FNP PCP - General 03/30/22 [place] [address] documented as of this encounter
--- OUTSIDE RECORDS SUMMARY | 2022-06-27 15:13 | XMS_ITS | Encounter Summary ---
:1975 Author Organization [facility] Address [address] [place] [address] Care Team Providers Name Role Phone Yara Noriega Primary Care Provider Encounter Details Date Type Department Care Team Description 03/14/2022 Lab Requisition [facility] Outr Resulting Lab, Pathology & Laboratory Provider [facility] acute hospital [address] [place] [id number] Social History Tobacco Use Types Packs/Day Years Used Date Smoking Tobacco: Never Assessed Sex Assigned at Date Recorded Not on file documented as of this encounter Plan of Treatment Not on filedocumented as of this encounter Procedures Procedure Name Priority Date/Time Associated Diagnosis Comme nts HEPATITIS C AB W Routine 03/14/2022 13:05 Results for this REFLEX TO HCV RNA EDT procedure are in BY PCR the results section. documented in this encounter Results HEPATITIS C AB W REFLEX TO HCV RNA BY PCR (03/14/2022 13:05 EDT) Analysis Performed At Patho logist Time Signature Hep C Antibody Negative Negative 03/15/2022 [facility] 11:26 EDT CENTER LABORATORY SERVICES Specimen Anatomical Collection Method Collection Time Receive d Time (Source) Location / / Volume Laterality Blood VENOUS BLOOD / 03/14/2022 13:05 2 Unknown EDT 21:12 EDT Provider Outr Resulting Lab CHEMISTRY & BLOOD GAS VICKI BURNS Performing Organization Address City/State/ZIP Code Phon e Number [facility] LABORATORY [address] [place] [address] SERVICES documented in this encounter Visit Diagnoses Not on filedocumented in this encounter Care Teams Transmission Worker Relationship Specialty Start Date End Date Yara Noriega FNP PCP - General 03/30/[address] [place] [address] [place] [address] documented as of this encounter
--- OUTSIDE RECORDS SUMMARY | 2022-06-27 15:13 | XMS_ITS ---
:1975 Author Organization [facility] Otolaryngology Address [address], [place] [id number] Care Team Providers Name Role Phone Louie Andersen Unavailable Unavailable PROBLEMS Type Condition ICD9-CM Code [id number] Code Onset Condition SNO MED Code Dates Status Problem Obstructive sleep G47.33 Active 78 223858 apnea Problem Chronic rhinitis J31.0 Active 860 42039 Problem Nasal congestion R09.81 Active 682 15506 Problem Environmental Z91.09 Active 926933 007 allergies ALLERGIES Substance Reaction Event Type Date Status sinus Unknown Non Drug Allergy Mar, Active ENCOUNTERS Encounter Location Date Diagnosis [address] Mar, Postnasal drip R09.82 ; Otolaryngology [address] [place] [address], Chronic rhin itis J31.0 [place] [id number] and Environmenta l allergies Z91.09 [facility] [address] [place] [address] Apr, [address] [place], [place] [id number] [address] Apr, Environmen leo allergies Otolaryngology [address] [place], Z91.09 ; Obs [place]uctive [place] [id number] sleep apnea G47. 33 and Nasal congestion R09.[address] Mar, Otolaryngology [address] [place] [id number] Mar, Nasal shu estion R09.81 ; Otolaryngology [address] [place] [address], Obstructive sleep apnea [place] [id number] G47.33 ; Environ mental allergies Z91.09 ; Wheezing R06.2 a nd Latent tuberculosis Z22 .7 [facility] [address] [facility] Mar, Nasal sept al spur J34.89 Otolaryngology [address] [place], ; Deviated n raymon septum [place] [id number] J34.2 ; Elevated blood pressure reading R03.0 ; Eustachian tube dysfunction H69. 80 and Allergic rhiniti s due to allergen J30.9 IMMUNIZATIONS No Known Immunizations SOCIAL HISTORY Qualifiers Date Never Smoker REASON FOR REFERRAL FUNCTIONAL STATUS PLAN OF CARE Activity Details Follow Up prn Reason: Future Test ALLERGEN PANEL - STANDARD EN VIROMENTAL ([id number]) [id number] Future Test ALLERGEN - RHODOTORULA IGE 2 [id number] VITAL SIGNS Height 5 ft 11 in in 2021-04-27 Height 5 ft 11 in in 2020-05-28 Height 31.10 in 2020-04-27 Height 31.10 in 2020-03-30 Weight 263 lbs 2021-04-27 Weight 272 lbs 2020-05-28 Weight 262 lbs 2020-04-27 Weight 260 lbs 2020-03-30 BMI 36.68 kg/m2 2021-04-27 BMI 37.93 kg/m2 2020-05-28 BMI 190.43 kg/m2 2020-04-27 BMI 188.98 kg/m2 2020-03-30 Blood pressure systolic 132 mm Hg 2021-04-27 Blood pressure diastolic 78 mm Hg 2021-04-27 MEDICATIONS Medication Instructions Dosage Frequency Start End Duration Statu s Date Date Fluticasone Nasally Once a 1 spray in 24h Mar, 30 day(s) Active Propionate 50 day each 2020 MCG/ACT nostril Omeprazole Not-Takin g Fluticasone Nasally Once a 1 spray in 24h Sep, 90 days No t-Takin Propionate 50 day each 2019 g MCG/ACT nostril Prednisone Not-Takin g Loratadine Not-Takin g Fluticasone Nasally Once a 1 spray in 24h Mar, 30 day(s) Not-Takin Propionate 50 day each 2019 g MCG/ACT nostril metFORMIN HCl Not-Takin g PROCEDURES Procedure Date Ordered Result Body Site NASAL ENDOSCOPY, DX Mar 30, 2020 RESULTS Name Result Date Reference Range ALLERGEN PANEL - STANDARD ENVIROMENTAL ([id number]) 2020-04-27 Class Description Comment G983-WjZ D. pteronyssinus 0.16 Class 0/I X483-NdK D farinae Mite 0.14 Class 0/ I E631-LyT Cat Dander <0.10 Class 0 D441-VeV Dog Dander <0.10 Class 0 N192-RoT Bermuda Grass 0.12 Class 0/I Q155-Xwezgxb Grass IgE <0.10 Class 0 T752-DrK Augie Grass 0.10 Class 0/I B908-WaJ Cockroach, Latvian 0.15 Cla ss 0/I R283-BeM Penicillium chrysogen <0.10 C lass 0 A148-NvR Cladosporium herbarum <0.10 C lass 0 P359-RjV Aspergillus fumigatus <0.10 C lass 0 N542-BlC Mucor racemosus <0.10 Class 0 M295-YuX alternaria alternata <0.10 Cl ass 0 G833-IuN Setomelanomma rostrata <0.10 Class 0 K970-JhF Fusarium proliferatum <0.10 C lass 0 O375-SsU Stemphylium herbarum <0.10 Cl ass 0 K991-WwK Aureobasidi pullulans <0.10 C lass 0 A586-EqW Epicoccum purpur <0.10 Class 0 O072-SvX Maple/Mays <0.10 Class 0 U500-ZwU Common Silver Birch <0.10 Cla ss 0 F364-YaM Red Jacket, White 0.12 Class 0/I M370-UkD Elm, Latvian <0.10 Class 0 Rockwell Pollen IgE 0.11 Class 0/I P853-Cwdkm Nabesna Oscoda IgE <0.10 Cla ss 0 R726-NjD Litchfield <0.10 Class 0 G256-HyV Simeon, White <0.10 Class 0 P097-KkJ Luzerne, White <0.10 Class 0 N462-LrN Roberts, Red <0.10 Class 0 O776-WyM Ragweed, Short 0.14 Class 0/ I C446-IuO Giant Ragweed <0.10 Class 0 D018-JbZ Wormwood <0.10 Class 0 K481-LkJ Plantain, Zimbabwean 0.10 Class 0/I Y896-Zabj's Quarters IgE <0.10 Class 0 V990-IdV <0.10 Class 0 C853-OjG Pigweed, Rough <0.10 Class 0 H653-OwL Rough Marshelder <0.10 Class 0 F521-DcL Sheep Bunnlevel <0.10 Class 0 ALLERGEN - RHODOTORULA IGE 2020-04-27 Rhodotorula, IgE <0.35 <0.35 Class Interpretation 0 REASON FOR VISIT ENT-6 mo sinus damián, ENT- 6 mo sinus recheck, ENT- 6 mo recheck, ENT sinus issues, CPAP, ent labs fu, PFP EST PATIENT (S), ENT allergy lab review , PFP Est Patient (L), ent 4 wks fu , PFP EST PATIENT (S), PFP PA Joint Visit. 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 , PFP, New Patient, PFP-Nasal Endoscopy. [place] Dragon Disclaimer Insurance Providers [facility] Health Member Patient Patient Patient Patient Patient Subscriber Subscriber Subscriber Group Insurance Plan Plan Plan Plan ID Relationship Address Phone Name Date of ID Name Date of No Type Insurance Insurance Insurance Coverage to Subscriber Address Phone Name Dates [place] [phone] [place] self Tony [id number] MEDICAID [place] [address] MEDICA[place] [id number] [facility] [phone] HEALTH self Tony [id number] [facility] [id number] PLANS INC [id number] PLANS [facility] [id number] [facility] [address] [facility] - self Tony [id number] [facility] VERONIQUE RODRIGUEZ (Davy [place] (Write Off) [place] [address] Off)
== END ==
PROVIDERS: PCP Nurse Practitioner Family; Visit Provider Nurse Practitioner Family
DX: R06.00 Dyspnea, unspecified (principal)
CPT/HCPCS: 71046

== ENCOUNTER 2022-06-20 16:29 | Outpatient (REF) | payer MEDICAID, SELFPAY | END 2022-06-20 16:30 | disposition home or self-care (01) | LOC: LBN 16:29 | PROVIDERS: PCP Nurse Practitioner Family; Visit Provider Nurse Practitioner Family | DX: E11.9 Type 2 diabetes mellitus without complications (principal); K62.5 Hemorrhage of anus and rectum | CPT/HCPCS: 87177 ==

== ENCOUNTER 2022-06-20 17:47 | Outpatient (REF) | payer MEDICAID, SELFPAY ==
[2022-06-20 21:14] LABS: Abs Immature Grans 0.02 10^3/uL (0.0-0.06); Absolute Basophil Count 0.03 10^3/uL (0.0-0.2); Absolute Eosinophil Count 0.08 10^3/uL (0.0-0.7); Absolute Lymphocyte Count 2.02 10^3/uL (1.2-3.4); Absolute Monocyte Count 0.58 10^3/uL (0.1-0.8); Absolute Neutrophil Count 1.94 10^3/uL (1.2-6.7); Basophils % 0.6; Eosinophils % 1.7; HCT 45.9 % (40.0-50.0); HGB 14.6 g/dL (13.5-17.5); Immature Grans % 0.4; Lymphocytes % 43.3; MCH 27.4 pg (27.0-33.0); MCHC 31.8 % (32.0-36.0); MCV 86 fL (80-95); MPV 11.9 fL (8.0-11.0); Monocytes % 12.4; Neutrophils % 41.6; Platelet Count 323 10^3/uL (130-400); RBC 5.32 10^6/uL (4.36-5.78); RDW 14.5 % (11.8-14.1); RDW-SD 45.8 fL; WBC 4.67 10^3/uL (4.4-10.8)
[2022-06-20 21:15] LABS: ESR 15 mm/hr (0-15)
[2022-06-20 21:29] LABS: ALT 25 U/L (16-63); AST 20 U/L (15-37); Albumin 4.1 g/dL (3.4-5.0); Alkaline Phosphatase 72 U/L (46-116); Anion Gap 7.5 mmol/L (3-11); BUN 16 mg/dL (7-18); Bilirubin, Total 0.2 mg/dL (0.2-1.0); C-Reactive Protein 0.33 mg/dL (0.0-0.3); CO2 28.5 mmol/L (21.0-32.0); CREATININE 0.8 mg/dL (0.70-1.30); Calcium 9.7 mg/dL (8.5-10.1); Chloride 104 mmol/L (98-107); Estimated GFR 109.85 (mL/min/1.73m2); Glucose 88 mg/dL (74-106); Potassium 4.4 mmol/L (3.5-5.1); Sodium 140 mmol/L (136-145); Total Protein 7.8 g/dL (6.4-8.2)
[2022-06-20 21:50] LABS: Hemoglobin A1C 6.4 % (<5.7)
[2022-06-22 09:36] LABS: Cyclic Citrullinated Peptide <2.5 U/mL (<5.0)
[2022-06-23 10:56] LABS: Lyme Ab w Rflx to Lyme Confirm Negative (Negative)
[2022-06-23 16:03] LABS: ANA Interpretation Negative (Negative)
[2022-06-24 18:09] LABS: Anaplasma phagocytophilum Negative (Negative); B. miyamotoi PCR Negative (Negative); Babesia divergens/MO-1 Negative (Negative); Babesia duncani Negative (Negative); Babesia microti Negative (Negative); Ehrlichia chaffeensis Negative (Negative); Ehrlichia ewingii/canis Negative (Negative); Ehrlichia muris eauclairensis Negative (Negative)
== END 2022-06-20 17:48 | disposition home or self-care (01) ==
LOC: LBN 17:47
PROVIDERS: PCP Nurse Practitioner Family; Visit Provider Nurse Practitioner Family
DX: K62.5 Hemorrhage of anus and rectum (principal); E11.9 Type 2 diabetes mellitus without complications; L81.8 Other specified disorders of pigmentation; M25.59 Pain in other specified joint
CPT/HCPCS: 80053; 85652; 86200; 87798; 83036; 85025; 86038; 86140; 86618

== ENCOUNTER 2022-08-04 08:51 | Day surgery (SDC) | payer MEDICAID, SELFPAY ==
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
--- NOTE | 2022-08-03 20:41 | W.PM.DSUDISC ---
Date of service: 08/04/22 Time of Service: 15:39 Discharge Plan Disposition Patient Disposition: Home Condition: Good Discharge Details Reason For Visit: Colonoscopy Attending Provider: Hemant Velazco Primary Care Provider: Yara Noriega Home Meds and New Rx's Prescriptions: New sucralfate [Carafate] 1 gram tablet 1 g PO QAC Qty: 90 0RF Rx Instructions: Take 1 tablet by mouth every night omeprazole magnesium 20 mg tablet,delayed release (DR/EC) 20 mg PO DAILY Qty: 90 0RF Rx Instructions: Take 1 tablet by mouth every day Continued albuterol sulfate 90 mcg/actuation HFA aerosol inhaler 2 puff IH Q6H PRN (Reason: shortness of breath or wheezing) Qty: 18 6RF (DME) OneTouch Verio test strips Strip See Rx Instructions .ROUTE .MEDSUPPLY Qty: 100 6RF Rx Instructions: As directed, test daily, to keep HbA1c less than 6.5; Dx: E11.9 (DME) blood-glucose meter [OneTouch Verio Flex meter] Misc See Rx Instructions .ROUTE .MEDSUPPLY Qty: 1 0RF Rx Instructions: Test daily; To keep HbA1c less than 6.5; Dx: E11.9 (DME) lancets [OneTouch Delica Plus Lancet] 30 gauge misc See Rx Instructions .ROUTE .MEDSUPPLY Qty: 100 6RF Rx Instructions: Test daily; to keep HbA1c less than 6.5%; Dx: E11.9 sumatriptan succinate 50 mg tablet 50 mg PO ONCE Qty: 20 6RF (DME) compr.stocking,knee,long,large Misc See Rx Instructions .ROUTE .MEDSUPPLY Qty: 12 0RF Rx Instructions: As directed daily while driving (DME) oxygen-air delivery systems Device See Rx Instructions .Route Rx Instructions: As directed fluticasone propionate 50 mcg/actuation spray,suspension 1 spray KAILA DAILY Rx Instructions: administer into each nostril saline rinse intranasal BID metformin 1,000 mg tablet 1,000 mg PO BID Qty: 180 3RF Discontinued bisacodyl [Dulcolax (bisacodyl)] 5 mg tablet,delayed release (DR/EC) 5 mg PO ONCE Qty: 4 0RF Rx Instructions: Take as directed for your bowel preperation polyethylene glycol 3350 [Miralax] 17 gram/dose powder 17 g PO DAILY Qty: 238 0RF Rx Instructions: Take as instructed for your bowel prep Discharge Instructions Instructions: Diet for Stomach Ulcers and Gastritis (GEN), Gastritis (GEN), Peptic Ulcer (DC) Additional Instructions: 1. If tolerated, consume a soft, low fiber diet for 1-2 days. [address] Do not drive, drink alcohol, operate machinery, make critical decisions, or do activities that require coordination or balance for 24 hours. 3. Because air was put into your colon during the procedure, expelling air from your rectum (passing gas or farting) is normal. 4. You may not have a bowel movement for 1-3 days because of the colonoscopy prep. This is normal. 5. You may experience a sore throat for 24 to 48 hours. You may use throat lozenges or gargle with warm salt water to relieve the discomfort. 6. Because air was put into your stomach during the procedure, you may experience some belching. 7. Go directly to the emergency room if you notice any of the following: Develop chills (warm to touch), or if you have a thermometer and your temperature is above 101 Difficulty breathing or difficultly swallowing Persistent vomiting Severe abdominal pain, other than gas cramps Severe chest pain Black, tarry stools Any bleeding ? exceeding one tablespoon 8. Call your physician if the site where your intravenous was started becomes red, swollen, painful, and warm to touch. 9. Your physician has reviewed your pre-procedure medications. Please continue to take those medications as previously ordered. You will be given specific information/education regarding any changes to your medications before leaving. 10. Start taking omeprazole and Carafate as prescribed. I will call you when I have the results of the biopsy, and I will most likely recommend a follow-up upper endoscopy around 3 to 6 months from now. Stand Alone Forms: Anesthesia Discharge Inst., Dylan Osuna (DSU) Activity:: Activity as Tolerated Diet:: As Tolerated Discharge Orders Discharge Orders: Discharge Order (Routine); Ordered 08/03/22 Ordered By: Hemant Velazco DS: Diagnosis Discharge Diagnosis (1) Gastric ulcer: Status: Acute Asessment and Plan: I performed upper and lower endoscopies today. There was evidence of a small gastric ulcer. I obtained a biopsy. I would like you to start taking omeprazole and Carafate. I have provided prescriptions. I did not see any source of bleeding in your large intestine during the colonoscopy.
--- NOTE | 2022-08-03 20:45 | W.COLOREPORT ---
Date of service: 08/04/22 Time of Service: 15:44 Colonoscopy Report Date of procedure: 08/04/22 Pre-op diagnosis general: Hematochezia Post-op diagnosis procedure note: other (Gastric ulcer) Procedure: EGD and colonoscopy Surgeon: Hemant Velazco Anesthesia Type: General:No Airway Estimated blood loss (mL): 5 Pathology: other (Gastric ulcer, gastric antral and body biopsies) Complications: None Disposition: same day Indications: Tony is a 46-year-old male whose been experiencing intermittent hematochezia. Additionally, he describes some vague upper abdominal discomfort consistent with gastritis. Prep: Miralax/Dulcolax Procedure Start Time: 14:12 Procedure End Time: 14:36 Retraction Time: 10 Findings: Small gastric ulcer in the gastric body Procedure Description: After the initiation of monitored anesthetic care, and with the assistance of a bite block, I advanced a standard gastroscope through the mouth past the hypopharynx and into the esophagus.? Under the direct vision of the scope, I advanced down the esophagus into the stomach.? Once I entered the stomach, I performed a brief inspection, followed by retroflexion towards the gastric cardia.? This appeared normal.? After that, I gently advanced the scope around the incisura angularis and examined the pylorus.? This also appeared normal.? Next, I advanced the scope through the pylorus into the duodenum.? The mucosa was pink and healthy appearing.? There were no abnormalities.? I was able to visualize bile draining into the duodenum through the ampulla Vater. ?Next, I began retracting the endoscope.? I brought the camera back into the stomach, and carefully examined the antrum and gastric body. There was a 0.75 cm flat nonbleeding area of erythema consistent with a gastric ulcer. There is no visible vessel. I performed a biopsy along the margin.? I then gently desufflated some of the stomach, and withdrew the endoscope into the distal esophagus. The GE junction and Z-line were normal-appearing at 47 cm. ?Finally, I withdrew the scope along the length of the esophagus taking great care to examine the entirety of the mucosa.? I did not appreciate any abnormalities. Next we move Tony into the left lateral decubitus position. I began by performing an external anorectal exam.? Perineum and skin were normal, as was the anal verge.? There was no not evidence of external hemorrhoids.? Next, I performed a digital rectal exam.? I did appreciate any abnormal findings.? Next, I advanced a colonoscope into the rectal vault.? I performed retroflexion.? The rectum was totally normal. I did not see any evidence of internal hemorrhoids.? Using insufflation, I then advanced the colonoscope beyond the rectal folds and into the sigmoid colon before advancing towards the cecum.? The quality of the prep was excellent.? The scope was noted to be in the cecum by identification of the ileocecal valve and appendiceal orifice.? I then began withdrawing the colonoscope using repeated irrigation as necessary for full evaluation of the colonic mucosa. ?Once the scope was withdrawn to the level of the rectum, great care was taken to examine portions of the rectal folds.? I did not see any evidence of polyps or malignancy. Finally, the scope was withdrawn and the patient was brought to the same-day surgery recovery unit as the anesthetic wore off. ?The findings and instructions were shared with the patient prior to discharge.
[2022-08-04 09:33] VITALS: BP 123/86; PULSE 68; RESP 16; TEMP 36.5; O2SAT 100
[2022-08-04] MEDS: Lactated Ringers 1,000 ML 80 ML IV (10:25)
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
[2022-08-04 10:52] VITALS: BMI 37.6
--- NOTE | 2022-08-04 14:15 | STOM_PTH ---
PATIENT: Tony Estes LOC: [facility] U#:[id number] AGE/SX: 46/M ROOM: RE08/04/[address]: Hemant Velazco MD : 1975 BED: DIS: 08/04/2022 SPEC #: [id number] RECD: 08/04/22 18:01 STATUS: ZOE RE #: [id number] SUAD: 08/04/22 14:[address]: Hemant Velazco DEPT: Surgical Specimen RECD BY: Mari Dutta ENTERED: 08/04/22 18:03 SP TYPE: STOMACH OTHR DR: Yara Noriega Tissues: 1 - STOMACH BIOPSY 2 - STOMACH BIOPSY 3 - STOMACH BIOPSY Procedures: GROSS AND MICRO LEVEL 4 Comments: [id number]
[2022-08-04 14:50] VITALS: BP 117/82; PULSE 62; RESP 16; TEMP 36.2; O2SAT 100
[2022-08-04 15:23] VITALS: BP 115/83; PULSE 77; RESP 16; TEMP 36.3; O2SAT 100
[2022-08-04] MEDS: Hyoscyamine 0.125 MG SL/ORAL/CHEW SL (15:29)
[2022-08-04 15:44] VITALS: BP 119/83; PULSE 74; RESP 16; TEMP 36.3; O2SAT 100
--- NOTE | 2022-08-04 16:02 | W.ANESPOSTOP ---
Postoperative Evaluation Date, Time and Location Date Performed: 08/04/22 Time Performed: 15:44 Patient Location: Day Surgery Unit Vital Signs Most Recent Imported Vital Signs: Most Recent Vital Signs Temp Pulse Resp BP Pulse Ox 36.3 C L 74 16 119/83 100 08/04/22 15:44 08/04/22 15:44 08/04/22 15:44 08/04/22 15:44 08/04/22 15:44 Pain Score Most Recent Pain Score: Most Recent Pain Score Pain Level 5 08/04/22 15:44 Assessment Mental Status: Awake (Alert & Oriented to Patient Baseline) Airway and Respiratory Function: Patent airway with normal (patient baseline) respiratory exam Cardiovascular Function: Hemodynamically Stable Hydration Status: Adequately Hydrated Nausea & Vomiting: No Nausea or Vomiting Pain: Pain is tolerable per patient Peripheral Nerve Block: Patient did not receive a nerve block
== END 2022-08-04 16:08 | disposition home or self-care (01) ==
PROVIDERS: PCP Nurse Practitioner Family; Visit Provider Surgery
PROC: (CPT 45378; principal; 2022-08-04 12:00)
DX: K25.4 Chronic or unspecified gastric ulcer with hemorrhage; E11.9 Type 2 diabetes mellitus without complications; J45.909 Unspecified asthma, uncomplicated; G47.33 Obstructive sleep apnea (adult) (pediatric)
CPT/HCPCS: 45378; 43239; 88305; J2704; J3490

== ENCOUNTER 2023-05-01 15:52 | Outpatient (REF) | payer OTHER, SELFPAY ==
[2023-05-01 17:24] LABS: HCT 45.8 % (40.0-50.0); HGB 14.7 g/dL (13.5-17.5); MCH 27.5 pg (27.0-33.0); MCHC 32.1 % (32.0-36.0); MCV 86 fL (80-95); MPV 11.4 fL (8.0-11.0); Platelet Count 287 10^3/uL (130-400); RBC 5.35 10^6/uL (4.36-5.78); RDW 14.2 % (11.8-14.1); RDW-SD 44.4 fL; WBC 4.64 10^3/uL (4.4-10.8)
[2023-05-01 17:59] LABS: ALT 26 U/L (16-63); AST 15 U/L (15-37); Albumin 3.7 g/dL (3.4-5.0); Alkaline Phosphatase 72 U/L (46-116); Anion Gap 9.5 mmol/L (3-11); BUN 17 mg/dL (7-18); CO2 27.5 mmol/L (21.0-32.0); Calcium 9.8 mg/dL (8.5-10.1); Chloride 102 mmol/L (98-107); Estimated GFR 92.84 (mL/min/1.73m2); Glucose 103 mg/dL (74-106); Potassium 4.3 mmol/L (3.5-5.1); Sodium 139 mmol/L (136-145); Total Protein 7.1 g/dL (6.4-8.2); Vitamin B12 268 pg/mL (193-986)
[2023-05-01 18:15] LABS: Bilirubin, Total 0.4 mg/dL (0.2-1.0)
== END 2023-05-01 15:53 | disposition home or self-care (01) ==
LOC: NCHCN 15:52
PROVIDERS: PCP Nurse Practitioner Family; Visit Provider Family Medicine
DX: E11.40 Type 2 diabetes mellitus with diabetic neuropathy, unspecified (principal); R53.83 Other fatigue; K76.0 Fatty (change of) liver, not elsewhere classified; Z79.899 Other long term (current) drug therapy
CPT/HCPCS: 80053; 85027; 82607

== ENCOUNTER 2023-08-30 14:50 | Outpatient (REF) | payer OTHER, SELFPAY ==
[2023-08-30 19:24] LABS: HCT 45.4 % (40.0-50.0); HGB 14.7 g/dL (13.5-17.5); MCH 27.5 pg (27.0-33.0); MCHC 32.4 % (32.0-36.0); MCV 85 fL (80-95); MPV 10.6 fL (8.0-11.0); Platelet Count 317 10^3/uL (130-400); RBC 5.35 10^6/uL (4.36-5.78); RDW 13.9 % (11.8-14.1); RDW-SD 42.7 fL; WBC 4.59 10^3/uL (4.4-10.8)
[2023-08-30 19:39] LABS: ALT 26 U/L (16-63); AST 19 U/L (15-37); Albumin 3.8 g/dL (3.4-5.0); Alkaline Phosphatase 66 U/L (46-116); BUN 15 mg/dL (7-18); Bilirubin, Total 0.5 mg/dL (0.2-1.0); Calcium 9.7 mg/dL (8.5-10.1); Calculated LDL 81 mg/dL (<100); Chloride 103 mmol/L (98-107); Cholesterol 140 mg/dL (<200); Estimated GFR 92.84 (mL/min/1.73m2); Glucose 113 mg/dL (74-106); HDL Cholesterol 50 mg/dL (40-60); Potassium 4.1 mmol/L (3.5-5.1); Sodium 140 mmol/L (136-145); Total Protein 7.7 g/dL (6.4-8.2); Triglyceride 45 mg/dL (<150)
[2023-08-30 19:56] LABS: Hemoglobin A1C 6.4 % (<5.7)
== END 2023-08-30 14:51 | disposition home or self-care (01) ==
LOC: NCHCN 14:50
PROVIDERS: PCP Nurse Practitioner Family; Visit Provider Nurse Practitioner Family
DX: K76.0 Fatty (change of) liver, not elsewhere classified (principal); E11.9 Type 2 diabetes mellitus without complications; E78.5 Hyperlipidemia, unspecified
CPT/HCPCS: 80053; 80061; 85027; 83036

== ENCOUNTER 2024-04-22 14:38 | Outpatient (REF) | payer OTHER, SELFPAY ==
--- OUTSIDE RECORDS SUMMARY | 2024-04-22 14:40 | XMS_ITS | Encounter Summary ---
Author Organization [facility] Address [address] [place] [address] Care Team Providers Care Hedis Abstractor Name Role Phone Yara Noriega GRISELDA Primary Care Provider [phone] Encounter Details Date Type Department Care Team (Late st Contact Info) Description 06/21/2022 Lab Requisition [facility] Pathology & Laboratory Medicine - [address] [phone] Outr Resulting Lab, Provider Social History Tobacco Use Types Packs/Day Years Used Date Smoking Tobacco: Never Assessed Interpersonal Safety Answer Date Record ed Physically Hurt Never 06/22/2020 Verbally Threaten Not on file 06/22/2020 Sex and Gender Information Value Date Recorded Sex Assigned at Not on file Gender Identity Not on file Sexual Orientation Not on file documented as of this encounter Plan of Treatment Not on file documented as of this encounter Procedures Procedure Name Priority Date/Time Associated Diagnosis Comments OVA/PARASITE EXAM Routine 06/20/2022 16: 00 EST documented in this encounter Results * OVA/PARASITE EXAM (06/20/2022 16:00 EST) Parasite No ova and parasites seen. 06/23/2022 10:30 EST [facility] Feces SPECIMEN FROM RECTUM / Unknown 06/20/2022 16:00 EST 06/21/2022 18:00 EST Narrative [facility] - 06/23/2022 10:30 EST (If Cryptosporidium, Cyclospora, or Microsporidium are suspected, specific tests must be requested.) Single negative specimen does not rule out the possibility of a parasitic infection. Provider Outr Resulting Lab MICROBIOLOGY - GENERAL ORDERABLES [facility] [address] [place] [address] documented in this encounter Visit Diagnoses Not on filedocumented in this encounter Care Teams Hedis Abstractor Relationship Specialty Start Date End Date Yara Noriega [place] [address] PCP - General 03/30/22 documented as of this encounter
--- OUTSIDE RECORDS SUMMARY | 2024-04-22 14:40 | XMS_ITS | Encounter Summary ---
Author Organization [facility] Address [address] [place] [address] Care Team Providers Care Software Applications Engineer Name Role Phone Yara Noriega GRISELDA Primary Care Provider [phone] Encounter Details Date Type Department Care Team (Late st Contact Info) Description 06/21/2022 Lab Requisition [facility] Pathology & Laboratory Medicine - [address] [phone] Outr Resulting Lab, Provider Social History Tobacco [...] Procedure Name Priority Date/Time Associated Diagnosis Comments HOLD SST Today 06/20/2022 15:11 EST HOLD SST Today 06/20/2022 15:11 EST CCP ANTIBODIES Today 06/20/2022 15:11 EST LYME AB Today 06/20/2022 15:11 EST ANTI NUCLEAR AB (RYAN), IFA Today 06/20/2022 15:11 EST documented in this encounter Results * HOLD SST (06/20/2022 15:11 EST) Hold Hold 06/21/2022 18:[address] [facility] Blood VENOUS BLOOD / Unknown 06/20/2022 15:11 EST 06/21/2022 16:55 EST Provider Outr Resulting Lab LAB INFO SER VICE AND SUPPORT & PHONE RESULT Performing Organization Address [facility] [address] [facility] Co de Phone Number [facility] [address] [place] [address] * HOLD SST (06/20/2022 15:11 EST) Hold Hold 06/21/2022 18:[address] [facility] Blood VENOUS BLOOD / Unknown 06/20/2022 15:11 EST 06/21/2022 16:55 EST Provider Outr Resulting Lab LAB INFO SER VICE AND SUPPORT & PHONE RESULT Performing Organization Address [facility] Co de Phone Number [facility] [address] [place] [address] * LYME AB (06/20/2022 15:11 EST) Lyme Ab Negative Negative 06/23/2022 10:[address] [facility] Blood VENOUS BLOOD / Unknown 06/20/2022 15:11 EST 06/21/2022 16:49 EST Provider Outr Resulting Lab IMMUNOLOGY A ND SEROLOGY ORDERABLES Performing Organization Address [facility] Co de Phone Number [facility] [address] [place] [address] * ANTI NUCLEAR AB (RYAN), IFA (06/20/2022 15:11 EST) RYAN Interpretation Negative Negative 2021 15:[address] [facility] Comment:No titer performed, RYAN Screen is negative. Blood VENOUS BLOOD / Unknown 06/20/2022 15:11 EST 06/21/2022 16:[address] [facility] - 06/23/2022 15:59 EST Results were obtained with the INOVA NOVA Lite HEp-2 RYAN Kit by indirect immunofluorescence. Provider Outr Resulting Lab IMMUNOLOGY A ND SEROLOGY ORDERABLES Performing Organization Address City/[facility] [address]/[facility] Co de Phone Number [facility] [address] [place] [address] * CCP ANTIBODIES (06/20/2022 15:11 EST) CCP Antibodies <2.5 <5.0 U/mL 06/22/2022 9:[address] [facility] Blood VENOUS BLOOD / Unknown 06/20/2022 15:11 EST 06/21/2022 16:49 EST Provider Outr Resulting Lab IMMUNOLOGY A ND SEROLOGY ORDERABLES Performing Organization Address [facility] [address]/[facility] de Phone Number [facility] [address] [place] [address] documented in this encounter Visit Diagnoses Not on filedocumented in this encounter Care Teams Software Applications Engineer Relationship Specialty Start Date End Date Yara [place] [address] PCP - General 03/30/22 documented as of this encounter
--- OUTSIDE RECORDS SUMMARY | 2024-04-22 14:40 | XMS_ITS | Encounter Summary ---
Author Organization [facility] Address [address] [place] [address] Care Team Providers Care Export Clerk Name Role Phone Yara Noriega GRISELDA Primary Care Provider [phone] Encounter Details Date Type Department Care Team (Late st Contact Info) Description 05/10/2022 Lab Requisition [facility] Pathology & Laboratory Medicine - [address] [address] Eliecer Sepulveda, [facility] [address] [place] [phone] Encounter for other general examination Social History Tobacco Use Types Packs/Day Years [...] Procedure Name Priority Date/Time Associated Diagnosis Comments SURGICAL PATHOLOGY Today 05/09/2022 15 :50 EDT Encounter for other general examination documented in this encounter Results * SURGICAL PATHOLOGY (05/09/2022 15:50 EDT) Note to Patient The following pathology results have been interpreted by your pathologist and may be available to you before your health provider has had the opportunity to review them. Please allow time for your provider to receive these results and explore management options, if applicable. 05/12/2022 8:09 EDT [facility] Final Diagnosis A. SKIN OF FOREARM, RIGHT POSTERIOR, PUNCH BIOPSY: - Sparse superficial perivascular inflammation with melanophages. See comment. B. SKIN OF FOREARM, LEFT POSTERIOR, PUNCH BIOPSY: - Sparse superficial perivascular inflammation with melanophages. 05/12/2022 8:09 [facility] Diagnosis Comment Multiple sections of both biopsies were reviewed. In both, the epidermis has a relatively uniform amount of melanin [...] melanin pigment and melanocytes militates against vitiligo. 05/12/2022 8:09 [facility] Attestation By the signature below, the attending physician certifies that they have 1) personally conducted a gross and/or microscopic examination of the described specimen(s), and/or personally interpreted the results of laboratory testing of the described specimen(s), and 2) personally rendered or confirmed the above diagnosis. 05/12/2022 8:09 [facility] at 0809 Microscopic Description Sections consist of a punch biopsy of skin to the deep reticular dermis. The stratum corneum is unremarkable. The epidermis [...] mild fibrosis. Deeper sections have similar features. 05/12/2022 8:09 [facility] Clinical History Hypopigmentation 05/12/2022 8:09 [facility] Gross Description A. Received in formalin labelled with proper patient identification (initials E, A) and 1. R forearm is a holland-brown skin punch biopsy measuring 0.3 cm in diameter and excised to a depth of 0.2 cm. Submitted intact in A1. B. Received in formalin labelled with proper patient identification (initials E, A) and 2. L forearm is a holland-brown skin punch biopsy measuring 0.3 cm in diameter and excised to a depth of 0.2 cm. Submitted intact in B1. ALESSANDRA MURPHY(ASCP) 05/10/2022 18:25 05/12/2022 8:09 EDT [facility] Performing Lab [facility] 05/12/2022 8:09 EDT [facility] Scanned Images 05/12/2022 8:09 EDT [facility] Tissue TISSUE SPECIMEN FROM SKIN / Unknown 05/09/2022 15:50 EDT 05/10/2022 17:12 EDT Tissue specimen (specimen) SPECIMEN FROM SKIN / Unknown 05/09/2022 15:50 EDT 05/10/2022 17:[address] [facility] PATHOLOGY ORDERAB LES Performing Organization Address City/State/[facility] Co de Phone Number [facility] [address] [place] [address] documented in this encounter Visit Diagnoses Diagnosis Encounter for other general examination documented in this encounter Care Teams Export Clerk Relationship Specialty Start Date End Date Yara Noriega FNP [address] [place] [address] PCP - General 03/30/22 documented as of this encounter
--- OUTSIDE RECORDS SUMMARY | 2024-04-22 14:40 | XMS_ITS | Referral Summary ---
Author Organization [facility] Address [address] [place] [address] Care Team Providers Care Complaint Evaluation Officer Name Role Phone Yara Noriega GRISELDA Primary Care Provider [phone] Social History Tobacco Use Types Packs/Day Years Used Date Smoking Tobacco: Never Assessed Interpersonal Safety Answer Date Record ed Physically Hurt Never 06/22/2020 Verbally Threaten Not on file 06/22/2020 Sex and Gender Information Value Date Recorded Sex Assigned at Not on file Gender Identity Not on file Sexual Orientation Not on file Plan of Treatment Not on file Procedures Procedure Name Priority Date/Time Associated Diagnosis Comments HEPATITIS C AB W REFLEX TO HCV RNA BY PCR Routine 03/14/2022 13:05 EDT from Last 3 Months or Most Recently Relevant to Health Maintenance Results * HEPATITIS C AB W REFLEX TO HCV RNA BY PCR (03/14/2022 13:05 EDT) Hep C Antibody Negative Negative 03/15/2022 11:26 EDT [facility] Blood VENOUS BLOOD / Unknown 03/14/2022 13:05 EDT 03/14/2022 21:12 EDT Provider Outr Resulting Lab CHEMISTRY & BLOOD GAS ORDERABLES [facility] [address] [place] [address] from Last 3 Months or Most Recently Relevant to Health Maintenance Care Teams Complaint Evaluation Officer Relationship Specialty Start Date End Date Yara Nor[place] [address] [address] [place] [address] PCP - General 03/30/22
--- OUTSIDE RECORDS SUMMARY | 2024-04-22 14:40 | XMS_ITS | Clinical Summary ---
Author Organization [facility] Address [address] [place] [address] Care Team Providers Care Manager Research Development Name Role Phone Yara Noriega GRISELDA Primary Care Provider [phone] Social History Tobacco Use Types Packs/Day Years Used Date Smoking Tobacco: Never Assessed Interpersonal Safety Answer Date Record ed Physically Hurt Never 06/22/2020 Verbally Threaten Not on file 06/22/2020 Sex and Gender Information Value Date Recorded Sex Assigned at Not on file Gender Identity Not on file Sexual Orientation Not on file Plan of Treatment Health Maintenance Due Date Last Done Comments Hepatitis B Vaccine (1 of 3 - 19+ 3-dose series) 09/08 COVID-19 Vaccine ( season) 2023 Hepatitis C Screen Completed 03/14/2022 Procedures Procedure Name Priority Date/Time Associated Diagnosis Comments HEPATITIS C AB W REFLEX TO HCV RNA BY PCR Routine 03/14/2022 13:05 EDT from Last 3 Months or Most Recently Relevant to Health Maintenance Results * HEPATITIS C AB W REFLEX TO HCV RNA BY PCR (03/14/2022 13:05 EDT) Hep C Antibody Negative Negative 03/15/2022 11:26 EDT [facility] Blood VENOUS BLOOD / Unknown 03/14/2022 13:05 EDT 03/14/2022 21:12 EDT Provider Outr Resulting Lab CHEMISTRY & BLOOD GAS ORDERABLES [facility] [address] [place] [address] from Last 3 Months or Most Recently Relevant to Health Maintenance Care Teams Manager Research Development Relationship Specialty Start Date End Date Yara Noriega FNP [address] [facility] [place] [address] PCP - General 03/30/22
--- OUTSIDE RECORDS SUMMARY | 2024-04-22 14:40 | XMS_ITS | Encounter Summary ---
Author Organization [facility] Address [address] [place] [address] Care Team Providers Care Cage Maker Name Role Phone Yara Noriega GRISELDA Primary Care Provider [phone] Encounter Details Date Type Department Care Team (Late st Contact Info) Description 03/12/2020 Lab Requisition [facility] Pathology & Laboratory Medicine - [address] [address] Outr Resulting Lab, Provider Social History Tobacco Use Types Packs/Day Years Used Date Smoking Tobacco: Never Assessed Sex and Gender Information Value Date Recorded Sex Assigned at Not on file Gender Identity Not on file Sexual Orientation Not on file documented as of this encounter Plan of Treatment Not on file documented as of this encounter Procedures Procedure Name Priority Date/Time Associated Diagnosis Comments OVA/PARASITE EXAM Routine 03/11/2020 10: 30 EDT documented in this encounter Results * (ABNORMAL) OVA/PARASITE EXAM (03/11/2020 10:30 EDT) Parasite ENTAMOEBA HARTMANNI TROPHOZOITE S(A) 03/15/2020 14:26 EDT [facility] Comment:This organism is con sidered Non-pathogenic. Detection may indicate exposure to a contaminated water source, but its role as an etiologic agent causinggastrointestinal disease has NOT been established. Feces SPECIMEN FROM RECTUM / Unknown Stool Collect / Unknown 03/11/2020 10:30 EDT 03/12/2020 17:13 EDT Provider Outr Resulting Lab MICROBIOLOGY - GENERAL ORDERABLES [facility] [address] [place] [address] documented in this encounter Visit Diagnoses Not on filedocumented in this encounter Care Teams Cage Maker Relationship Specialty Start Date End Date Yara Noriega F[place] [facility] [facility] [address] PCP - General 03/30/22 documented as of this encounter
--- OUTSIDE RECORDS SUMMARY | 2024-04-22 14:40 | XMS_ITS | Encounter Summary ---
Author Organization [facility] Address [address] [place] [address] Care Team Providers Care Automatic Hemmer Name Role Phone Yara Noriega GRISELDA Primary Care Provider [phone] Encounter Details Date Type Department Care Team (Late st Contact Info) Description 08/04/2022 Lab Requisition [facility] Pathology & Laboratory Medicine - [facility] [address] [place] [address] Hemant Velazco MD [address] [place] [address], [address] [place] [address] Hemorrhage of anus and rectum; Gastric ulcer, unspecified as acute or chronic, without hemorrhage or perforation Social History Tobacco Use Types Packs/Day Years [...] Date/Time Associated Diagnosis Comments SURGICAL PATHOLOGY Today 08/04/2022 14 :15 EST Hemorrhage of anus and rectum Gastric ulcer, unspecified as acute or chronic, without hemorrhage or perforation documented in this encounter Results * SURGICAL PATHOLOGY (08/04/2022 14:15 EST) Note to Patient The following pathology results have been interpreted by your pathologist and may be available to you before your health provider has had the opportunity to review them. Please allow time for your provider to receive these results and explore management options, if applicable. 08/09/2022 9:31 [facility] Final Diagnosis A. STOMACH, ? ULCER? , BIOPSY: - Inactive Helicobacter pylori gastritis. - Deeper levels examined. B. STOMACH, ANTRUM, BIOPSY: - Inactive Helicobacter pylori gastritis. C. STOMACH, BODY, BIOPSY: - Inactive Helicobacter pylori gastritis. 08/09/2022 9:31 [facility] Attestation There was significant resident/fellow involvement in the diagnostic evaluation of this case. By the signature below, the attending physician certifies that they have personally conducted a gross and/or microscopic examination of the described specimens and rendered or confirmed the above diagnosis. 08/09/2022 9:31 [facility] at 0931 Clinical History Hematochezia 08/09/2022 9:31 [facility] Gross Description A. Received in formalin labelled with proper patient identification (initials E, A) and gastric ulcer bx is a single holland tissue fragment (0.7 x 0.1 x 0.1 cm). Submitted intact in A1. B. Received in formalin labelled with proper patient identification (initials E, A) and antrum bx is a single holland tissue fragment (0.5 x 0.2 x 0.1 cm). Submitted intact in B1. C. Received in formalin labelled with proper patient identification (initials E, A) and body of stomach bx are 3 holland tissues (0.5 x 0.1 x 0.1 cm to 0.1 x 0.1 x 0.1 cm). Entirely submitted in C1. Saba Reyes 08/07/2022 8:32 08/09/2022 9:31 [facility] Resident/Zaid w: Kylee Hancock MD 08/09/2022 9:31 [facility] Performing Lab [facility] 08/09/2022 9:31 [facility] Scanned Images 08/09/2022 9:31 [facility] Tissue ENTIRE STOMACH / Unknown 08/04/2022 14:15 EST 08/04/2022 22:51 EST Tissue specimen (specimen) STOMACH STRUCTURE / Unknown 08/04/2022 14:15 EST 08/04/2022 22:51 EST Tissue specimen (specimen) STOMACH STRUCTURE / Unknown 08/04/2022 14:15 EST 08/04/2022 22:51 EST Hemant Velazco MD PATHOLOGY ORDERABLES [facility] [address] [place] [address] documented in this encounter Visit Diagnoses Diagnosis Hemorrhage of anus and rectum Hemorrhage of rectum and anus Gastric ulcer, unspecified as acute or chronic, without hemorrhage or perforation documented in this encounter Care Teams Automatic Hemmer Relationship Specialty Start Date End Date Yara Noriega [place] [address] PCP - General 03/30/22 documented as of this encounter
--- OUTSIDE RECORDS SUMMARY | 2024-04-22 14:40 | XMS_ITS | Encounter Summary ---
Author Organization [facility] Address [address] [place] [address] Care Team Providers Care Agricultural Mechanic Name Role Phone Yara Noriega GRISELDA Primary Care Provider [phone] Encounter Details Date Type Department Care Team (Late st Contact Info) Description 03/14/2022 Lab Requisition [facility] Pathology & Laboratory Medicine - [address] [id number] Outr Resulting Lab, Provider Social History Tobacco [...] RNA BY PCR Routine 03/14/2022 13:05 EDT documented in this encounter Results * HEPATITIS C AB W REFLEX TO HCV RNA BY PCR (03/14/2022 13:05 EDT) Hep C Antibody Negative Negative 03/15/2022 11:26 EDT [facility] Blood VENOUS BLOOD / Unknown 03/14/2022 13:05 EDT 03/14/2022 21:12 EDT Provider Outr Resulting Lab CHEMISTRY & BLOOD GAS ORDERABLES [facility] [address] [place] [address] documented in this encounter Visit Diagnoses Not on filedocumented in this encounter Care Teams Agricultural Mechanic Relationship Specialty Start Date End Date Yara [place] [address] PCP - General 03/30/22 documented as of this encounter
--- OUTSIDE RECORDS SUMMARY | 2024-04-22 14:40 | XMS_ITS | Encounter Summary ---
Author Organization [facility] Address [address] [place] [address] Care Team Providers Care Rubber Goods Repairer Name Role Phone Yara Noriega GRISELDA Primary Care Provider [phone] Encounter Details Date Type Department Care Team (Late st Contact Info) Description 03/14/2022 Lab Requisition [facility] Pathology & Laboratory Medicine - [facility] [address] [place] [address] Outr Resulting Lab, Provider Social History Tobacco [...] Procedure Name Priority Date/Time Associated Diagnosis Comments HIV 1/2 ANTIGEN AND ANTIBODY, 4TH GENERATION Routine 03/14/2022 13:05 EDT documented in this encounter Results * HIV 1/2 ANTIGEN AND ANTIBODY, 4TH GENERATION (03/14/2022 13:05 EDT) HIV 1 and 2 Antibody/p24 Antigen, 4th Generation Negative Negative 03/15/2022 11:23 EDT [facility] Comment:If acute HIV-1 infec tion is suspected in a high risk patient, submit plasma specimen for HIV-1 RNA quantitation test. Blood VENOUS BLOOD / Unknown 03/14/2022 13:05 EDT 03/14/2022 21:12 EDT Narrative [facility] - 03/15/2022 11:23 EDT Fourth Generation assay performed on the Siemens Centaur XPT. Provider Outr Resulting Lab IMMUNOLOGY A ND SEROLOGY ORDERABLES [facility] [address] [place] [address] documented in this encounter Visit Diagnoses Not on filedocumented in this encounter Care Teams Rubber Goods Repairer Relationship Specialty Start Date End Date Yara [place] [address] PCP - General 03/30/22 documented as of this encounter
--- OUTSIDE RECORDS SUMMARY | 2024-04-22 14:40 | XMS_ITS | Encounter Summary ---
Author Organization [facility] Address [address] [place] [address] Care Team Providers Care Mouthpiece Maker Name Role Phone Yara Noriega GRISELDA Primary Care Provider [phone] Encounter Details Date Type Department Care Team (Late st Contact Info) Description 03/22/2021 Lab Requisition [facility] Pathology & Laboratory Medicine - [address] [id number] Outr Resulting Lab, Provider Social History Tobacco [...] Procedure Name Priority Date/Time Associated Diagnosis Comments ZZCOVID-19 TEST [facility] PCR Today 03/21/2021 14:00 EDT COVID-19 TESTING Routine 03/21/2021 14:0 0 EDT documented in this encounter Results * COVID-19 TEST [facility] PCR (03/21/2021 14:00 EDT) Swab ENTIRE NASOPHARYNX / Unknown 03/21/2021 14:00 EDT 03/22/2021 15:44 EDT Provider Outr Resulting Lab MICROBIOLOGY - GENERAL ORDERABLES [facility] [address] [place] [address] * COVID-19 TESTING (03/21/2021 14:00 EDT) COVID-19 rt-PCR Result Negative Negative 03/23/2021 16:14 EDT [facility] Comment: This test has not been FDA cleared or approved. This test has been authorized by FDA under an EUA for use by authorized laboratories. This test has been authorized only for detection of nucleic acid from 2019-nCoV, not for any other viruses or pathogens. This test is only authorized for the duration of the declaration that circumstances exist justifying the authorization of emergency use of in vitro diagnostic tests for detection and/or diagnosis of 2019-nCoV under section 564(b)(1) of Act, 21 U.S.C ?? 360bbb-3(b) (1), unless the authorization is terminated or revoked sooner. Negative results do not preclude 2019-nCoV infection and should not be used as the sole basis for treatment or other patient management decisions. Negative results must be combined with clinical observations, patient history, and epidemiological information. Testing was performed using the [place] SARS-CoV-2 assay ([employer] on the [place] 6800 System Performing Lab [place] [address] [facility] 03/23/2021 16:14 EDT [facility] Swab 03/21/2021 14:0 0 EDT 03/22/2021 15:44 EDT Provider Outr Resulting Lab MICROBIOLOGY - GENERAL ORDERABLES [facility] [address] [place] [address] documented in this encounter Visit Diagnoses Not on filedocumented in this encounter Care Teams Mouthpiece Maker Relationship Specialty Start Date End Date Yara [place] [address] PCP - General 03/30/22 documented as of this encounter
[2024-04-22 21:20] LABS: HCT 47.5 % (40.0-50.0); HGB 15.8 g/dL (13.5-17.5); MCHC 33.3 % (32.0-36.0); MCV 84 fL (80-95); MPV 11.1 fL (8.0-11.0); Platelet Count 337 10^3/uL (130-400); RBC 5.65 10^6/uL (4.36-5.78); RDW 14.1 % (11.8-14.1); RDW-SD 43.3 fL
[2024-04-22 21:45] LABS: Microalb ug/mg Crea 6.1 ug/mg Cr
[2024-04-22 22:37] LABS: ALT 29 U/L (16-63); AST 17 U/L (15-37); Albumin 4.2 g/dL (3.4-5.0); Alkaline Phosphatase 80 U/L (46-116); Anion Gap 9.7 mmol/L (3-11); BUN 15 mg/dL (7-18); Bilirubin, Total 0.57 mg/dL (0.2-1.0); CO2 28.3 mmol/L (21.0-32.0); Calcium 9.9 mg/dL (8.5-10.1); Calculated LDL 98 mg/dL (<100); Chloride 102 mmol/L (98-107); Cholesterol 159 mg/dL (<200); Estimated GFR 92.26 (mL/min/1.73m2); Glucose 98 mg/dL (74-106); HDL Cholesterol 51 mg/dL (40-60); Potassium 4.6 mmol/L (3.5-5.1); Sodium 140 mmol/L (136-145); TSH (W/Ref FT4) 1.54 uIU/mL (0.36-3.74); Total Protein 7.8 g/dL (6.4-8.2); Triglyceride 52 mg/dL (<150)
== END 2024-04-22 14:39 | disposition home or self-care (01) ==
LOC: LBN 14:38
PROVIDERS: PCP Nurse Practitioner Family; Visit Provider Nurse Practitioner Family
DX: E11.9 Type 2 diabetes mellitus without complications (principal); R53.83 Other fatigue
CPT/HCPCS: 80053; 80061; 85027; 82043; 82570; 84443

== ENCOUNTER 2024-08-20 14:36 | Outpatient (CLI) | payer OTHER, SELFPAY ==
[2024-08-20 14:06] LABS: ESR 8 mm/hr (0-15)
[2024-08-20 14:20] LABS: C-Reactive Protein 0.55 mg/dL (<or=0.5)
== END 2024-08-20 14:37 | disposition home or self-care (01) ==
LOC: LBO 14:38
PROVIDERS: PCP Nurse Practitioner Family; Visit Provider Nurse Practitioner Family
DX: G24.5 Blepharospasm (principal)
CPT/HCPCS: 36415; 85652; 86140